=== PATIENT | female | born 1945 | race Caucasian/White ===

== ENCOUNTER 2021-08-05 09:36 | Inpatient (IN) ==
[2021-08-05] MEDS ORDERED: SODIUM CHLORIDE 0.9% 500 ML IV STA (09:51)
[2021-08-05] MEDS ORDERED: SODIUM CHLORIDE 0.9% 1000ML 1,000 ML IV STA (09:51)
[2021-08-05 10:17] LABS: Basophils # (auto) 0.03 K/uL (0-0.2); Basophils % (auto) 0.4 %; Eosinophils % (auto) 3.8 %; Hematocrit (blood only) 29.1 % (37-47); Hemoglobin 8.8 g/dL (12.0-16.0); Immature Granulocytes # (auto) 0.02 K/uL (0.00-0.02); Immature Granulocytes % (auto) 0.3 %; Lymphocytes % (auto) 15.3 %; Mean Corpuscular Hemoglobin 29.7 pg (25-34); Mean Corpuscular Hgb Conc 30.2 g/dL (32-36); Mean Corpuscular Volume 98.3 fL (80-100); Mean Platelet Volume 10.8 fL (7.4-10.4); Monocytes # (auto) 0.53 K/uL (0.11-0.59); Monocytes % (auto) 6.8 %; Neutrophils # (auto) 5.77 K/uL (1.4-6.5); Neutrophils % (auto) 73.4 %; Platelet Count 740 K/uL (130-400); RDW Coefficient of Variation 31.2 % (11.5-14.5); RDW Standard Deviation 113.8 fL (36.4-46.3); Red Blood Count 2.96 M/uL (4.2-5.4); White Blood Count 7.85 K/uL (4.8-10.8)
[2021-08-05 10:35] LABS: Alanine Aminotransferase 28 U/L (12-78); Aspartate Aminotransferase 21 U/L (15-37); BUN Creatinine Ratio 12.7 (10-20); Blood Urea Nitrogen 11 mg/dl (7-18); Calcium 8.6 mg/dl (8.5-10.1); Carbon Dioxide 25 mmol/L (21-32); Chloride 105 mmol/L (98-107); Creatinine Clr Calc Pharmacy 53.4 ml/min; Est GFR (African American) 77.2 ml/min; Est GFR (Non-African American) 66.6 ml/min; Glucose 202 mg/dl (70-99); Lipase 139 U/L (73-393); Potassium 3.9 mmol/L (3.5-5.1); Sodium 136 mmol/L (136-145)
[2021-08-05 10:40] LABS: Albumin Globulin Ratio 0.9 (0.9-2); Alkaline Phosphatase 121 U/L (45-117); Bilirubin,Total 0.6 mg/dl (0.2-1); Globulin 3.2 gm/dl (2.5-4.0); Total Protein 6.2 gm/dl (6.4-8.2); Troponin I < 0.015 ng/ml (0-0.045)
[2021-08-05 11:06] LABS: Anisocytosis Present; Ovalocytes 1+; Poikilocytosis Present; Schistocytes 1+
[2021-08-05] MEDS ORDERED: ONDANSETRON INJ 2 MG/ML 2 ML VIAL IV STA (11:36)
[2021-08-05] MEDS: HYDROmorphone INJ 0.5 MG/0.5 ML SYR IV PRN ×2 (11:44→12:10)
[2021-08-05] MEDS ORDERED: SODIUM CHLORIDE 0.9% 1000ML 1,000 ML IV ONE (12:35)
[2021-08-05] MEDS ORDERED: DAPTOmycin 375 MG in SYRINGE 0 ML IV ONE (12:39)
[2021-08-05] MEDS ORDERED: AZTREONAM 2,000 MG in DEXTROSE 5% 100 ML IV STA (12:41)
[2021-08-05] MEDS ORDERED: SODIUM CHLORIDE 0.9% 250 ML IV PRN ×3 (12:48→18:03)
--- NOTE | 2021-08-05 13:00 | CT Scan Report ---
CT abd pelvis wo con CLINICAL HISTORY: lower abd pain, hypotension TECHNIQUE: Helical axial images of the abdomen and pelvis were obtained. Automated dose lowering tech niques and/or adjustment according to patient size were utilized for this exam. This exam was perfor med without intravenous contrast. COMPARISON: None available at the time of this dictation. FINDINGS: Lower chest: Bibasilar atelectasis is seen. Liver: Unremarkable. No focal lesions are seen. Gallbladder and biliary tree: No calcified gallstones. Normal caliber wall. No intra- or extrahepatic biliary ductal dilation. Pancreas: Unremarkable, no focal lesions. Spleen: Unremarkable. Adrenals: Bilateral adrenal gland thickening is seen. Kidneys and ureters: Unremarkable. Bladder: Unremarkable. Reproductive organs: Unremarkable. Bowel: There is a large heterogeneous pelvic mass containing soft tissue and air densities, measuring approximately 76 x 116 mm. Evaluation is limited due to lack of intravenous contrast, however focal thickening is seen in the sigmoid colon. The appendix is normal. Lymph nodes Retroperitoneal: Unremarkable. Mesenteric: Unremarkable. Pelvic: Unremarkable. Peritoneum: There is extensive soft tissue density and fat stranding throughout the abdomen. Vessels: Atherosclerotic calcifications are seen. Abdominal wall: Subcutaneous emphysema is seen in the left pelvic soft tissues. Bones: Degenerative changes in the visualized spine. IMPRESSION: Large heterogeneous pelvic collection with some pockets of air adjacent to the thickened sigmoid colo n. Although evaluation is limited by noncontrast technique, this is favored to represent a hematoma w ith likely likely rectal perforation. Underlying mass cannot be entirely excluded, follow-up to resol ution is recommended. ACT 112: Positive. There are findings on this exam that require communication between the performing entity and the patient following Patient Test Result Information Act ([place] Act 112) guidelines. Electronically signed by: Nate Betancourt M.D. 08/05/2021 12:59 PM
--- NOTE | 2021-08-05 13:59 | History & Physical Report ---
Date of Service August 05, 2021 Assessment & Plan (1) Hemoperitoneum: Plan: Sonam is a 76-year-old female who presented for bone marrow biopsy at 730 this morning to assess for dysplasia 2/2 history of thrombocythemia. Following procedure patient had increased back and rectal pain with follow-up CT scan showing hemoperitoneum. Hemoperitoneum as a complication of biopsy - CT: Large heterogeneous pelvic collection with some pockets of air adjacent to the thickened sigmoid colon. Although evaluation is limited by noncontrast technique, this is favored to represent a hematoma with likely likely rectal perforation. Underlying mass cannot be entirely excluded, follow-up to resolution is recommended. Patient hypotensive, hemoglobin decreased from 13-9.2 acutely, down trended to 8.8. Patient pending 2 units transfusion, 2 additional units on hold No blood in rectal vault Surgery and vascular consulted. Recommend transfer to ICU and medical treatment with fluids, antibiotics, transfusion as needed at this time. If continues to bleed will require CT angiogram. She is allergic to contrast, premedicate with Benadryl plus methylprednisolone if pursued. Discussed with patient. Hemoglobin every 2 hours Bethea catheter pending Patient received aztreonam/daptomycin due to extensive allergies. Plus Flagyl for anaerobe coverage to cover high risk potential rectal perforation Status post 1 L NSS bolus, +500 cc additional bolus Continue NSS 125 cc/h No history of heart failure per patient Aspirin held (2) Bowel perforation: Plan: Antibiotics as above, management and surgical consult as above (3) Thrombocythemia: Plan: No acute management, patient undergoing oncologic work-up as outpatient with biopsy as noted above Aspirin held for acute bleeding (4) Peripheral neuropathy: Plan: Improved at time of assessment Follow clinically (5) Multinodular goiter: Plan: No acute management (6) Fibromyalgia: Plan: Pain control as needed, balance pain control against hypotension with above Oral meds held in the setting of hemoperitoneum and treatment as above (7) Hyperlipidemia: Plan: Pravachol held while n.p.o. (8) Depression with anxiety: Plan: BuSpar and diazepam held while n.p.o. Plan: DVT prophylaxis: SCDs, pharmacal prophylaxis contraindicated in the setting of bleeding CODE STATUS: Full code, discussed with patient Diet: N.p.o. Disposition: ICU History of Present Illness Primary Care Provider: Dionicio NShelia Pierce is a 76-year-old female who presented for bone marrow biopsy at 730 this morning to assess for dysplasia 2/2 history of thrombocythemia. Following procedure patient had increased back and rectal pain with follow-up CT scan showing hemoperitoneum. Patient reports she was otherwise in her normal state of health when she presented for a biopsy this morning. Following biopsy she had increased pain, lightheadedness, dizziness and felt globally weak. She has continued to feel frail, and lightheaded since this morning. Slightly improved in the last 2 hours, but still much worse than her normal baseline. Denies nausea/vomiting at time of assessment. Denies bloody bowel movements, endorses some "brown liquid "stool movement with none since. Endorses back pain, abdominal pain which seems to be more diffuse across her whole belly this afternoon. Extensive allergies, discussed with patient. Has multiple antibiotic allergies, initially think she was allergic to steroids but notes that this was because she was given steroids at the same time she had an allergic reaction to an antibiotic. She notes that she has had steroid medications once since without any reaction. Patient believes that she potentially may have gotten steroids as a treatment for an allergic reaction rather than being allergic to the steroids himself. She reports an allergy to IV contrast dye, severe stomachache. No throat/lip swelling voice change or rash. Medical History: Reviewed. Hx of tachycardia (not afib/flutter) tx with metoprolol, otherwise no cardiac disease. Hx of esophageal cancer in remission. Pending a gallbladder evaluation for high Alk Phos. additional medical history updated. Medications: Reviewed. Took Metoprolol and diazepam this morning. Surgical History: Reviewed. 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 Allergies: Reviewed, extensive. Social History: Former smoker, none in 5 years. No EtOH, no recreational drug use. Code Status: Full Code Allergies Allergy/AdvReac Type Severity Reaction Status Date / Time alendronate sodium Allergy Unknown unknown Verified 09/30/15 14:37 Bactrim Allergy Unknown swelling Verified 09/30/15 14:37 doxycycline Allergy Unknown anaphylaxis, Verified 09/30/15 14:37 n/v erythromycin base Allergy Unknown unknown Verified 09/30/15 14:37 glucosamine Allergy Unknown unknown Verified 09/30/15 14:37 levofloxacin Allergy Unknown n/v, Verified 09/30/15 14:37 trouble breathing pantoprazole Allergy Unknown n/v Verified 09/30/15 14:37 phenylpropanolamine Allergy Unknown unknown Verified 09/30/15 14:37 sertraline Allergy Unknown felt weird Verified 09/30/15 14:37 sulfamethoxazole [Bactrim] Allergy Unknown swelling Verified 08/05/21 11:10 trimethoprim [Bactrim] Allergy Unknown swelling Verified 08/05/21 11:10 fluconazole Allergy Unknown Unverified 08/05/21 11:10 gatifloxacin [From Tequin] Allergy Unknown Unverified 08/05/21 11:10 gentamicin Allergy Unknown Unverified 08/05/21 11:10 tobramycin Allergy Unknown Unverified 08/05/21 11:10 CENTOMYCIN Allergy Unknown unknown Uncoded 09/30/15 14:37 CHONDROITIN Allergy Unknown unknown Uncoded 09/30/15 14:37 PCN Allergy Unknown tongue Uncoded 09/30/15 14:37 swelling Home Medications Medication Instructions Recorded Confirmed Type aspirin 81 mg tablet,delayed 81 mg PO DAILY #0 09/30/15 08/05/21 History release buspirone 10 mg tablet 10 mg PO TID #0 tab 09/30/15 08/05/21 History calcium carbonate 600 mg calcium 1,200 mg PO BID #0 tab 09/30/15 08/05/21 History (1,500 mg) tablet cimetidine 400 mg tablet 400 mg PO HS #0 tab 09/30/15 08/05/21 History diazepam 2 mg tablet (Valium) 2 mg PO UD PRN #0 tab 09/30/15 08/05/21 History hydroxyurea 500 mg capsule 500 mg PO BID #0 cap 09/30/15 08/05/21 History meclizine 12.5 mg tablet 12.5 mg PO UD PRN #0 09/30/15 08/05/21 History polyethylene glycol 3350 17 17 g PO Q OTHER DAY #0 pack 09/30/15 08/05/21 History gram/dose oral powder (Miralax) pravastatin 20 mg tablet 20 mg PO DAILY #0 tab 09/30/15 08/05/21 History cyclobenzaprine 5 mg tablet 5 mg PO UD PRN 08/05/21 08/05/21 History fluocinonide 0.05 % topical cream 1 applic TOPICAL BID PRN 08/05/21 08/05/21 History metoprolol tartrate 25 mg tablet 12.5 mg PO DAILY 08/05/21 08/05/21 History Past Med/Surg History Medical History (Updated 08/05/21 @ 14:53 by Jesse Mcintyre MD) Depression with anxiety Fibromyalgia History of vertigo Hyperlipidemia Irritable bowel syndrome Laryngeal cancer Multinodular goiter Peripheral neuropathy Thrombocythemia Surgical History (Updated 08/05/21 @ 14:53 by Jesse Mcintyre MD) H/O tubal ligation Social History (Updated 08/05/21 @ 14:51 by Jesse Mcintyre MD) Smoking Status: Former smoker Tobacco Type: Cigarettes Age Quit Using Tobacco: 71; Hx Alcohol Use: No Hx Substance Use: No Feels Safe at Home: Yes Review of Systems Review of Systems: Constitutional: Endorses fatigue, malaise. Denies fever/chills Eyes: Denies double vision, vision change, eye pain ENT: Denies ear pain, sore throat, sinus pain Cardiovascular: Denies Chest pain, chest pressure, palpitations, extremity swelling Respiratory: Denies shortness of breath, cough, sputum production, difficulty breathing. Hoarse voice at baseline Gastrointestinal: Endorses diffuse abdominal pain, rectal pain, low back pain. Genitourinary: Denies pain with urination, urinary urgency, urinary frequency Musculoskeletal: Endorses abdominal and back pain as noted, denies other focal weakness/pain. Integumentary: No acute lesions/rash Neurological: Denies headache, numbness, focal weakness. Endorses peripheral neuropathy, currently improved from prior Physical Exam Physical Exam: General: A&Ox3. NAD. Cooperative. Appears ill, frail. HEENT: Atraumatic, normocephalic. Visual acuity grossly intact, hearing grossly intact. Pupils mildly constricted, but reactive to light. Pulm: CTAB A&P. -wheezes, -rales, -rhonchi. Symmetrical chest rise. No increase work of breathing. No respiratory distress. Cardiac: RRR, -mrg. Radial pulses intact and symmetrical. Abdominal: Softly distended, diffusely tender without guarding/rigidity. No rebound. Back: Surgical dressing above right coccyx in place, underneath no active bleeding/hematoma. Extremities: Warm, dry. Clarifier strength, ankle dorsiflexion/plantar flexion 5/5. Sensation to soft touch and temperature intact in hands and feet. Radial pulses and PT pulses intact and symmetrical. Cap refill approximately 2 seconds. Results & Data Results & Data ([facility]) Vital Signs (Past 12 Hours) Vital Signs Temp Pulse Pulse Resp BP BP Pulse Ox 08/05/21 13:00 88 20 75/59 L 98 08/05/21 11:51 90 20 112/68 100 08/05/21 09:57 36.7 C 78 20 90/57 L 96 08/05/21 09:51 85 20 96 08/05/21 09:47 85 16 70/48 L 96 PG Care Time/CCT Total # of Minutes Spent Total Time Spent with Patient: Total time spent is greater than 50% in coordination of care (as documented) at patient's floor/unit and/or counseling patient: Coding Level of Care Code 27109 Initial Inpt Care Lvl 3 Diagnoses Hemoperitoneum K66.1 Bowel perforation K63.1 Thrombocythemia D75.839 Peripheral neuropathy G62.9 Multinodular goiter E04.2 Fibromyalgia M79.7 Hyperlipidemia E78.5 Depression with anxiety F41.8
--- NOTE | 2021-08-05 14:17 | Surgery Consultation ---
Date of Consultation August 05, 2021 Assessment & Plan (1) Hemoperitoneum: I reviewed the CAT scan with the radiologist refiner operator who stated that he did not personally do the procedure but talked to the person that that and felt that and not amount of bleeding when biopsy needle was removed Reviewed the CAT scan image the patient does have some blood around the liver which would make an intraperitoneal does have what appears to be some air either in the rectal wall or just outside the rectum and a large pelvic hematoma ER physician performed a rectal exam there was no blood in the rectum Given the likely trajectory of the bone marrow needle is likely the patient may have had some injury to the venous plexus around the sacral area with possibly the needle going into the rectum itself but since the patient has blood intraperitoneally I suspect that the trajectory of the needle involved by dilating the peritoneum (if this is the case the last resort would be to try to explore these veins could be treacherous to control) At this point recommended the patient be transferred to the ICU transfused monitor her closely If she continues to bleed and we will obtain a CT angiogram she is allergic to the contrast she will need to be premedicated with steroids She will be given 2 units of blood at this time get serial hemoglobin insert Bethea catheter The case was discussed with the 3d designer the ER physician and the hospitalist with the patient and significant other History of Present Illness Reason for Consultation: Hypertension bleeding post procedure History of Present Illness 76-year-old female who is being worked up for anemia rule out myeloproliferative disease in approximately 730 this morning underwent a bone marrow biopsy by hematology service later in the morning started experience abdominal pain was brought into the emergency room and a CAT scan revealed what is believed intra-abdominal blood around the liver and in the pelvis with possible some air in the rectum she was hypotensive responded to fluids her hemoglobin that was drawn 11:00 was 8.8 had a hemoglobin of 9.2 that was being used to work-up possible etiology She has responded to fluids pressure in the 75 systolic to 110 systolic her heart rate been in high 80s low 90s Allergies Allergy/AdvReac Type Severity Reaction Status Date / Time alendronate sodium Allergy Unknown unknown Verified 09/30/15 14:37 Bactrim Allergy Unknown swelling Verified 09/30/15 14:37 doxycycline Allergy Unknown anaphylaxis, Verified 09/30/15 14:37 n/v erythromycin base Allergy Unknown unknown Verified 09/30/15 14:37 glucosamine Allergy Unknown unknown Verified 09/30/15 14:37 levofloxacin Allergy Unknown n/v, Verified 09/30/15 14:37 trouble breathing pantoprazole Allergy Unknown n/v Verified 09/30/15 14:37 phenylpropanolamine Allergy Unknown unknown Verified 09/30/15 14:37 sertraline Allergy Unknown felt weird Verified 09/30/15 14:37 sulfamethoxazole [Bactrim] Allergy Unknown swelling Verified 08/05/21 11:10 trimethoprim [Bactrim] Allergy Unknown swelling Verified 08/05/21 11:10 fluconazole Allergy Unknown Unverified 08/05/21 11:10 gatifloxacin [From Tequin] Allergy Unknown Unverified 08/05/21 11:10 gentamicin Allergy Unknown Unverified 08/05/21 11:10 tobramycin Allergy Unknown Unverified 08/05/21 11:10 CENTOMYCIN Allergy Unknown unknown Uncoded 09/30/15 14:37 CHONDROITIN Allergy Unknown unknown Uncoded 09/30/15 14:37 PCN Allergy Unknown tongue Uncoded 09/30/15 14:37 swelling Home Medications Medication Instructions Recorded Confirmed Type aspirin 81 mg tablet,delayed 81 mg PO DAILY #0 09/30/15 08/05/21 History release buspirone 10 mg tablet 10 mg PO TID #0 tab 09/30/15 08/05/21 History calcium carbonate 600 mg calcium 1,200 mg PO BID #0 tab 09/30/15 08/05/21 History (1,500 mg) tablet cimetidine 400 mg tablet 400 mg PO HS #0 tab 09/30/15 08/05/21 History diazepam 2 mg tablet (Valium) 2 mg PO UD PRN #0 tab 09/30/15 08/05/21 History hydroxyurea 500 mg capsule 500 mg PO BID #0 cap 09/30/15 08/05/21 History meclizine 12.5 mg tablet 12.5 mg PO UD PRN #0 09/30/15 08/05/21 History polyethylene glycol 3350 17 17 g PO Q OTHER DAY #0 pack 09/30/15 08/05/21 History gram/dose oral powder (Miralax) pravastatin 20 mg tablet 20 mg PO DAILY #0 tab 09/30/15 08/05/21 History cyclobenzaprine 5 mg tablet 5 mg PO UD PRN 08/05/21 08/05/21 History fluocinonide 0.05 % topical cream 1 applic TOPICAL BID PRN 08/05/21 08/05/21 History metoprolol tartrate 25 mg tablet 12.5 mg PO DAILY 08/05/21 08/05/21 History Patient History Social History Smoking Status: Never smoker Feels Safe at Home: Yes Physical Exam Physical Exam: On examination at a proximal 1310 the patient was pale laying on right side complaining of abdominal pain Her blood pressure was 110 systolic heart rate 83 The abdomen softly distended especially in the suprapubic area femoral pulses were present bilaterally although 2 out of 4 The entry site for the bone marrow was just to the right of the midline in the sacral area above the coccyx level there was no active bleeding from that area Results & Data ([facility]) Vital Signs (Past 12 Hours) Vital Signs Temp Pulse Pulse Resp BP BP Pulse Ox 08/05/21 13:00 88 20 75/59 L 98 08/05/21 11:51 90 20 112/68 100 08/05/21 09:57 36.7 C 78 20 90/57 L 96 08/05/21 09:51 85 20 96 08/05/21 09:47 85 16 70/48 L 96 PG Care Time/CCT Total # of Minutes Spent Total Time Spent with Patient: Total time spent is greater than 50% in coordination of care (as documented) at patient's floor/unit and/or counseling patient: Reviewing the x-rays all the appropriate plans with the consultants total time 1 hour Coding Level of Care Code 86001 Inpt Consult Level 5 Diagnoses Hemoperitoneum K66.1
[2021-08-05] MEDS ORDERED: ICU PROTOCOL FOR HYPERGLYCEMIA PRN (15:34)
[2021-08-05 16:16] LABS: INR 1.2 (0.9-1.1); Partial Thromboplastin Ratio 0.8; Prothrombin Time 11.7 Seconds (9.0-12.0)
[2021-08-05] MEDS: metroNIDAZOLE 500 MG/100 ML BAG IV SCH (16:26)
[2021-08-05] MEDS: fentaNYL citrate 100 MCG/2 ML VIAL IV PRN ×6 (16:26→23:20)
[2021-08-05 16:28] LABS: Hematocrit (blood only) 21.9 % (37-47); Hemoglobin 6.6 g/dL (12.0-16.0)
--- NOTE | 2021-08-05 17:27 | Critical Care Consultation ---
Date of Consultation August 05, 2021 Assessment & Plan (1) Hemoperitoneum: (2) Hypotension: (3) Thrombocythemia: Patient receiving blood at this time. We will recheck his CBC. Hypotension has resolved. No surgical intervention required at this time per general surgery. Personally discussed with the surgeon. If further bleeding seen, will need to order a CTA to evaluate for arterial bleeding. There is also concern for possible pneumoperitoneum. No significant coagulopathy seen. Will hold anticoagulation. Pain control per primary team. Patient is currently on empiric Flagyl. She also received a one-time dose of aztreonam and daptomycin in the ER. We will need to consider repeat CT abdomen to evaluate pneumoperitoneum and hemoperitoneum. ICU team will continue to monitor along with you. Thank you for the consult. History of Present Illness Reason for Consultation: Hemorrhagic anemia Attending Physician: Jesse Mcintyre MD History of Present Illness 76-year-old female who has a history of thrombocytosis underwent a bone marrow biopsy this morning. Following the biopsy she developed pain and dizziness. She came into the ER due to weakness and pain. She was found to have anemia. CT abdomen pelvis was completed which demonstrated a large heterogeneous pelvic collection with some pockets of air adjacent to the thickened sigmoid colon. A hematoma was favored and a likely rectal perforation. General surgery was consulted who is currently recommending conservative management and blood transfusion. Patient is not currently on any anticoagulation or antiplatelet therapy. 1 unit of packed RBCs is currently transfusing. Patient received 1.5 L of fluid in the emergency department. He is currently having some mild abdominal pain. Denies any dizziness or chest pain at present. Hemoglobin is currently 6.6. Blood pressure is currently 123/64. Heart rate 100. Allergies Allergy/AdvReac Type Severity Reaction Status Date / Time alendronate sodium Allergy Unknown unknown Verified 09/30/15 14:37 Bactrim Allergy Unknown swelling Verified 09/30/15 14:37 doxycycline Allergy Unknown anaphylaxis, Verified 09/30/15 14:37 n/v erythromycin base Allergy Unknown unknown Verified 09/30/15 14:37 glucosamine Allergy Unknown unknown Verified 09/30/15 14:37 levofloxacin Allergy Unknown n/v, Verified 09/30/15 14:37 trouble breathing pantoprazole Allergy Unknown n/v Verified 09/30/15 14:37 phenylpropanolamine Allergy Unknown unknown Verified 09/30/15 14:37 sertraline Allergy Unknown felt weird Verified 09/30/15 14:37 sulfamethoxazole [Bactrim] Allergy Unknown swelling Verified 08/05/21 11:10 trimethoprim [Bactrim] Allergy Unknown swelling Verified 08/05/21 11:10 fluconazole Allergy Unknown Unverified 08/05/21 11:10 gatifloxacin [From Tequin] Allergy Unknown Unverified 08/05/21 11:10 gentamicin Allergy Unknown Unverified 08/05/21 11:10 tobramycin Allergy Unknown Unverified 08/05/21 11:10 CENTOMYCIN Allergy Unknown unknown Uncoded 09/30/15 14:37 CHONDROITIN Allergy Unknown unknown Uncoded 09/30/15 14:37 PCN Allergy Unknown tongue Uncoded 09/30/15 14:37 swelling Home Medications Medication Instructions Recorded Confirmed Type aspirin 81 mg tablet,delayed 81 mg PO DAILY #0 09/30/15 08/05/21 History release buspirone 10 mg tablet 10 mg PO TID #0 tab 09/30/15 08/05/21 History calcium carbonate 600 mg calcium 1,200 mg PO BID #0 tab 09/30/15 08/05/21 History (1,500 mg) tablet cimetidine 400 mg tablet 400 mg PO HS #0 tab 09/30/15 08/05/21 History diazepam 2 mg tablet (Valium) 2 mg PO UD PRN #0 tab 09/30/15 08/05/21 History hydroxyurea 500 mg capsule 500 mg PO BID #0 cap 09/30/15 08/05/21 History meclizine 12.5 mg tablet 12.5 mg PO UD PRN #0 09/30/15 08/05/21 History polyethylene glycol 3350 17 17 g PO Q OTHER DAY #0 pack 09/30/15 08/05/21 History gram/dose oral powder (Miralax) pravastatin 20 mg tablet 20 mg PO DAILY #0 tab 09/30/15 08/05/21 History cyclobenzaprine 5 mg tablet 5 mg PO UD PRN 08/05/21 08/05/21 History fluocinonide 0.05 % topical cream 1 applic TOPICAL BID PRN 08/05/21 08/05/21 History metoprolol tartrate 25 mg tablet 12.5 mg PO DAILY 08/05/21 08/05/21 History Patient History Medical History (Updated 08/05/21 @ 18:40 by Chaparro España MD) Depression with anxiety Fibromyalgia History of vertigo Hyperlipidemia Hypotension Irritable bowel syndrome Laryngeal cancer Multinodular goiter Peripheral neuropathy Thrombocythemia Surgical History (Updated 08/05/21 @ 14:53 by Jesse Mcintyre MD) H/O tubal ligation Social History (Updated 08/05/21 @ 14:51 by Jesse Mcintyre MD) Smoking Status: Unknown if ever smoked Tobacco Type: Cigarettes Age Quit Using Tobacco: 71; Hx Alcohol Use: No Hx Substance Use: No Preferred Language: [place]uran Communication Ability: Effective City [employer] Required: No Beliefs That Will Affect Care: None Current Living Situation: Spouse Other Information That Helps Us Care for You: No Feels Safe at Home: Yes Safety Concerns: Feels Safe At This Time Assistive Devices: Denture - Upper Review of Systems Review of Systems: All systems reviewed & are unremarkable except as noted in HPI & below Physical Exam Physical Exam: Constitutional: Patient appears to be of their stated age. Patient is in no apparent distress. Patient is well-developed. Eyes: Pupils are equal round and reactive to light. Conjunctivae are normal. Anicteric sclera. Ears, nose, mouth and throat: Mallampati class . Normal posterior oropharynx. Uvula is midline. Neck: Trachea is midline. Visual inspection is normal. Respiratory: Clear to auscultation bilaterally. No use of accessory muscles. Cardiovascular: Regular rate and rhythm. No murmurs. No edema. Gastrointestinal: Mild tenderness palpation in the lower abdomen. Normal bowel sounds. Musculoskeletal: No cyanosis. Patient is able to move all extremities. Skin: No rashes, warm dry and intact. Neurologic: No obvious focal neurological deficits seen. Psychiatric: Alert and oriented x3 with a euthymic affect. Results & Data Results & Data ([facility]) Vital Signs (Past 12 Hours) Vital Signs Temp Pulse Pulse Resp BP BP Pulse Ox 08/05/21 17:10 97.7 F 94 H 16 102/68 95 08/05/21 16:36 97.9 F 94 H 16 106/68 95 08/05/21 16:21 97.7 F 95 H 16 97/46 L 96 08/05/21 16:06 97.7 F 90 16 95/68 L 95 08/05/21 15:34 94 H 08/05/21 15:00 88 18 85/39 L 95 08/05/21 13:00 88 20 75/59 L 98 08/05/21 11:51 90 20 112/68 100 08/05/21 09:57 98.1 F 78 20 90/57 L 96 08/05/21 09:51 85 20 96 08/05/21 09:47 85 16 70/48 L 96 vital signs, labs and imaging personally reviewed Coding Level of Care Code 78695 Inpt Consult Level 4 Diagnoses Hypotension I95.9 Hemoperitoneum K66.1 Thrombocythemia D75.839
--- NOTE | 2021-08-05 18:40 | Emergency Department Note ---
Impression & Plan Acute hemorrhage, Perforation of rectum, Anemia, Acute hypotension ED Provider Note INFORMANT: Patient and ED PROVIDER(S): Chaparro España MD CHIEF COMPLAINT: Rectal lower abdominal pain PLAN: Disposition: Admitted to ICU Condition: Critical Outpatient prescription management: none Referral: None MEDICAL DECISION MAKING: Patient presented emergency room because of lower abdominal pain and rectal pain after bladder biopsy. Rectal examination was concerning for tenderness but no gross blood noted. She had a very tender abdomen. Her blood pressure was low. She responded well to IV fluids. She was given a dose of IV Dilaudid and Zofran. She did feel somewhat better with this. The patient had additional episodes of hypotension that responded to IV fluids. Due to the hypotension, elevated lactate an abdominal/rectal pain patient was empirically given aztreonam and daptomycin. Patient underwent emergent CT scan and this revealed findings concerning for rectal perforation and pelvic hemorrhage. I did discuss this with radiology. The patient was informed. Patient was consented for packed red cell transfusion. Emergent consultation was placed with general surgery, Dr. Christiano Cabrera. He evaluated the patient in the ER. I also discussed the case with Dr. Fritz of hematology oncology. He evaluated the patient in the ER as well. 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 I did order the patient for 2 units of packed red blood cells given her recurrent hypotension. Surgery recommended conservative management with transfusion and monitoring. The concern was this could be bleeding from sacral plexus vessels and they would be very difficult to control open thomas. did discuss with vascular. He also consulted with the ICU and the patient will be admitted there. I discussed the case with for admission. The patient's blood pressure was marginal and Dilaudid was discontinued. She was given IV fentanyl for pain control. ICU bed was ready and blood was ready at the same time. The patient was transferred to the ICU for further resuscitation. Triage Nursing notes reviewed and agree them. Vital Signs: reviewed and remarkable for hypotension Differential diagnosis: Sepsis, UTI, GI bleed, perforated viscus, diverticulitis, metabolic, electrolyte abnormalities, as well as other pathologies. Diagnostics interpreted by me: ECG: none Cardiac Monitoring: Cardiac monitoring ordered by me: The patient was placed on continuous cardiac monitoring and observed. It revealed a normal sinus rhythm at 94 beats per minute without ectopy or evidence of dysrhythmia. Imaging studies: CT scan of the abdomen pelvis is concerning for rectal perforation and pelvic hemorrhage. Discussed with radiologist. I refer you to the EMR for further details. HPI: The patient is a 76 year old female who presents to the Emergency Room with complaints of lower abdominal and rectal pain. This started shortly after a bone marrow biopsy that was done at 730 this morning and is worsening. The patient also notes the following associated symptoms, nausea, lightheadedness. The patient has found no relieving factors. Current pain is rated as 8/10. Pain is worse with movement. Patient denies any recent significant constipation issues. She is been having relatively normal bowel movements although she does use MiraLAX. Pt denies LOC, headache, fevers, chills, diaphoresis, visual changes, neck pain, chest pain, breathing difficulties, vomiting, back pain, melena, hematochezia, urinary symptoms, numbness, weakness, lymphadenopathy, rash, or other complaints. ROS: See above HPI for pertinent positives & negatives. A total of 10 systems reviewed and were otherwise negative. PAST MEDICAL HISTORY:See Below , MDS PAST SURGICAL HISTORY:See Below, FAMILY HISTORY:See Below SOCIAL HISTORY:See Below, HOME MEDICATIONS:See Below ALLERGIES:See Below VITALS:See Below PHYSICAL EXAMINATION: GENERAL: Awake, alert, uncomfortable-appearing, in no distress HENT: Normocephalic, atraumatic. Oropharynx unremarkable except for dry mucous membranes. EYES: Mildly pale conjunctiva. Sclera non-icteric. NECK: Inspection normal. Non-tender. Supple. No nuchal rigidity. FROM. No masses. RESPIRATORY: Clear to auscultation. No wheezes. No rales. Normal respiratory effort. CARDIAC: Normal rate. Normal rhythm. No murmurs. No rubs. Extremities warm and well perfused. Pulses equal. No JVD. GI: Soft, non-distended. Significant lower tenderness to palpation. Mild rebound and guarding. No masses. RECTAL: Revealed no gross blood. Patient had exquisite tenderness on internal palpation. No impaction. MUSCULOSKELETAL: Atraumatic. Chest examination reveals no tenderness. The back is symmetrical on inspection without obvious abnormality. There is no CVA tenderness to palpation. No joint edema. LOWER EXTREMITIES: Calves are equal size bilaterally and non-tender. No edema. No discoloration. NEURO: Normal sensorium. No sensory or motor deficits noted. SKIN: No rash or jaundice noted. CRITICAL CARE: I have personally spent greater than 50 minutes of critical care time in the d irect management of this patient. This includes bedside care, interpretation of diagnostic studies, and testing, discussion with consultants, patient, and family members, and other required patient management activities. These minutes are in excess of all separately billable procedures. Chaparro España MD Past Med/Surg History Medical History (Updated 08/05/21 @ 18:40 by Chaparro España MD) Depression with anxiety Fibromyalgia History of vertigo Hyperlipidemia Hypotension Irritable bowel syndrome Laryngeal cancer Multinodular goiter Peripheral neuropathy Thrombocythemia Surgical History (Updated 08/05/21 @ 14:53 by Jesse Mcintyre MD) H/O tubal ligation Social History (Updated 08/05/21 @ 14:51 by Jesse Mcintyre MD) Smoking Status: Unknown if ever smoked Tobacco Type: Cigarettes Age Quit Using Tobacco: 71; Hx Alcohol Use: No Hx Substance Use: No Preferred Language: Swedish Communication Ability: Effective Counseling Department Chair Required: No Beliefs That Will Affect Care: None Current Living Situation: Spouse Other Information That Helps Us Care for You: No Feels Safe at Home: Yes Safety Concerns: Feels Safe At This Time Assistive Devices: Denture - Upper Allergies Allergies Allergy/AdvReac Type Severity Reaction Status Date / Time alendronate sodium Allergy Unknown unknown Verified 09/30/15 14:37 Bactrim Allergy Unknown swelling Verified 09/30/15 14:37 doxycycline Allergy Unknown anaphylaxis, Verified 09/30/15 14:37 n/v erythromycin base Allergy Unknown unknown Verified 09/30/15 14:37 glucosamine Allergy Unknown unknown Verified 09/30/15 14:37 levofloxacin Allergy Unknown n/v, Verified 09/30/15 14:37 trouble breathing pantoprazole Allergy Unknown n/v Verified 09/30/15 14:37 phenylpropanolamine Allergy Unknown unknown Verified 09/30/15 14:37 sertraline Allergy Unknown felt weird Verified 09/30/15 14:37 sulfamethoxazole [Bactrim] Allergy Unknown swelling Verified 08/05/21 11:10 trimethoprim [Bactrim] Allergy Unknown swelling Verified 08/05/21 11:10 fluconazole Allergy Unknown Unverified 08/05/21 11:10 gatifloxacin [From Tequin] Allergy Unknown Unverified 08/05/21 11:10 gentamicin Allergy Unknown Unverified 08/05/21 11:10 tobramycin Allergy Unknown Unverified 08/05/21 11:10 CENTOMYCIN Allergy Unknown unknown Uncoded 09/30/15 14:37 CHONDROITIN Allergy Unknown unknown Uncoded 09/30/15 14:37 PCN Allergy Unknown tongue Uncoded 09/30/15 14:37 swelling Home Meds Home Medications Medication Instructions Recorded Confirmed aspirin 81 mg tablet,delayed 81 mg PO DAILY #0 09/30/15 08/05/21 release buspirone 10 mg tablet 10 mg PO TID #0 tab 09/30/15 08/05/21 calcium carbonate 600 mg calcium 1,200 mg PO BID #0 tab 09/30/15 08/05/21 (1,500 mg) tablet cimetidine 400 mg tablet 400 mg PO HS #0 tab 09/30/15 08/05/21 diazepam 2 mg tablet (Valium) 2 mg PO UD PRN #0 tab 09/30/15 08/05/21 hydroxyurea 500 mg capsule 500 mg PO BID #0 cap 09/30/15 08/05/21 meclizine 12.5 mg tablet 12.5 mg PO UD PRN #0 09/30/15 08/05/21 polyethylene glycol 3350 17 17 g PO Q OTHER DAY #0 pack 09/30/15 08/05/21 gram/dose oral powder (Miralax) pravastatin 20 mg tablet 20 mg PO DAILY #0 tab 09/30/15 08/05/21 cyclobenzaprine 5 mg tablet 5 mg PO UD PRN 08/05/21 08/05/21 fluocinonide 0.05 % topical cream 1 applic TOPICAL BID PRN 08/05/21 08/05/21 metoprolol tartrate 25 mg tablet 12.5 mg PO DAILY 08/05/21 08/05/21 Results & Data (ED) Vital Signs Vital Signs - 24 hr 08/05/21 09:47 08/05/21 09:51 08/05/21 09:57 Temperature 36.7 C Temperature Source Oral Pulse Rate 85 85 Pulse Rate [Apical] 78 Pulse Rate from SpO2 Sensor Pulse Rhythm Regular Pulse Rhythm [Apical] Regular Respiratory Rate 16 20 20 Respiratory Effort / Characteristics Non-Labored Respiratory Depth Normal Respiratory Pattern Regular Blood Pressure 70/48 L Blood Pressure [Right Arm] 90/57 L Blood Pressure Mean 55 Blood Pressure Mean [Right Arm] 68 Pulse Oximetry 96 96 96 Oxygen Delivery Method Room Air Room Air Sepsis Recent Fever Within 48 Hours No Sepsis New/Unexplained Change in Mental Status No Sepsis Action Taken by Nursing No Action Required 08/05/21 10:05 08/05/21 11:00 08/05/21 11:51 Temperature Temperature Source Pulse Rate 78 86 Pulse Rate [Apical] 90 Pulse Rate from SpO2 Sensor 86 Pulse Rhythm Pulse Rhythm [Apical] Respiratory Rate 27 H 24 20 Respiratory Effort / Characteristics Respiratory Depth Respiratory Pattern Blood Pressure Blood Pressure [Right Arm] 112/68 Blood Pressure Mean Blood Pressure Mean [Right Arm] 82 Pulse Oximetry 99 100 Oxygen Delivery Method Room Air Sepsis Recent Fever Within 48 Hours Sepsis New/Unexplained Change in Mental Status Sepsis Action Taken by Nursing 08/05/21 12:20 08/05/21 13:00 08/05/21 14:00 Temperature Temperature Source Pulse Rate 78 84 85 Pulse Rate [Apical] 88 Pulse Rate from SpO2 Sensor 79 85 85 Pulse Rhythm Pulse Rhythm [Apical] Respiratory Rate 17 24 25 H Respiratory Effort / Characteristics Respiratory Depth Respiratory Pattern Blood Pressure 71/38 L Blood Pressure [Right Arm] 75/59 L Blood Pressure Mean 49 Blood Pressure Mean [Right Arm] 64 Pulse Oximetry 96 96 95 Oxygen Delivery Method Sepsis Recent Fever Within 48 Hours Sepsis New/Unexplained Change in Mental Status Sepsis Action Taken by Nursing Laboratory Data Result diagrams: 08/05/21 15:55 08/05/21 10:08 Lab Results 08/05/21 08/05/21 08/05/21 Range/Units 10:08 10:08 10:08 WBC 7.85 (4.8-10.8) K/uL RBC 2.96 L (4.2-5.4) M/uL Hgb 8.8 L (12.0-16.0) g/dL Hct 29.1 L (37-47) % MCV 98.3 (80-100) fL MCH 29.7 (25-34) pg MCHC 30.2 L (32-36) g/dL RDW Std Deviation 113.8 H (36.4-46.3) fL RDW Coeff of Kyree 31.2 H (11.5-14.5) % Plt Count 740 H (130-400) K/uL MPV 10.8 H (7.4-10.4) fL Immature Gran % (Auto) 0.3 % Neut % (Auto) 73.4 % Lymph % (Auto) 15.3 % Wharton % (Auto) 6.8 % Eos % (Auto) 3.8 % Baso % (Auto) 0.4 % Neut # (Auto) 5.77 (1.4-6.5) K/uL Lymph # (Auto) 1.20 (1.2-3.4) K/uL Wharton # (Auto) 0.53 (0.11-0.59) K/uL Eos # (Auto) 0.30 (0-0.5) K/uL Baso # (Auto) 0.03 (0-0.2) K/uL Immature Gran # (Auto) 0.02 (0.00-0.02) K/uL Poikilocytosis Present Anisocytosis Present Ovalocytes 1+ Schistocytes 1+ Sodium 136 (136-145) mmol/L Potassium 3.9 (3.5-5.1) mmol/L Chloride 105 (98-107) mmol/L Carbon Dioxide 25 (21-32) mmol/L Anion Gap 6.0 (3-11) BUN 11 (7-18) mg/dl Creatinine 0.84 (0.6-1.2) mg/dl Est Cr Clr Drug Dosing 53.4 ml/min Est GFR ( Amer) 77.2 ml/min Est GFR (Non-Af Amer) 66.6 ml/min BUN/Creatinine Ratio 12.7 (10-20) Glucose 202 H (70-99) mg/dl Lactate 2.1 H* (0.4-2.0) mmol/L Calcium 8.6 (8.5-10.1) mg/dl Total Bilirubin 0.6 (0.2-1) mg/dl AST 21 (15-37) U/L ALT 28 (12-78) U/L Alkaline Phosphatase 121 H (45-117) U/L Troponin I < 0.015 (0-0.045) ng/ml Total Protein 6.2 L (6.4-8.2) gm/dl Albumin 3.0 L (3.4-5.0) gm/dl Globulin 3.2 (2.5-4.0) gm/dl Albumin/Globulin Ratio 0.9 (0.9-2) Lipase 139 (73-393) U/L COVID-19 Eval Order SARS-CoV-2 (PCR) (Negative) Blood Type Blood Type Recheck Antibody Screen Crossmatch 08/05/21 08/05/21 08/05/21 Range/Units 13:00 13:00 13:02 WBC (4.8-10.8) K/uL RBC (4.2-5.4) M/uL Hgb (12.0-16.0) g/dL Hct (37-47) % MCV (80-100) fL MCH (25-34) pg MCHC (32-36) g/dL RDW Std Deviation (36.4-46.3) fL RDW Coeff of Kyree (11.5-14.5) % Plt Count (130-400) K/uL MPV (7.4-10.4) fL Immature Gran % (Auto) % Neut % (Auto) % Lymph % (Auto) % Wharton % (Auto) % Eos % (Auto) % Baso % (Auto) % Neut # (Auto) (1.4-6.5) K/uL Lymph # (Auto) (1.2-3.4) K/uL Wharton # (Auto) (0.11-0.59) K/uL Eos # (Auto) (0-0.5) K/uL Baso # (Auto) (0-0.2) K/uL Immature Gran # (Auto) (0.00-0.02) K/uL Poikilocytosis Anisocytosis Ovalocytes Schistocytes Sodium (136-145) mmol/L Potassium (3.5-5.1) mmol/L Chloride (98-107) mmol/L Carbon Dioxide (21-32) mmol/L Anion Gap (3-11) BUN (7-18) mg/dl Creatinine (0.6-1.2) mg/dl Est Cr Clr Drug Dosing ml/min Est GFR ( Amer) ml/min Est GFR (Non-Af Amer) ml/min BUN/Creatinine Ratio (10-20) Glucose (70-99) mg/dl Lactate (0.4-2.0) mmol/L Calcium (8.5-10.1) mg/dl Total Bilirubin (0.2-1) mg/dl AST (15-37) U/L ALT (12-78) U/L Alkaline Phosphatase (45-117) U/L Troponin I (0-0.045) ng/ml Total Protein (6.4-8.2) gm/dl Albumin (3.4-5.0) gm/dl Globulin (2.5-4.0) gm/dl Albumin/Globulin Ratio (0.9-2) Lipase (73-393) U/L COVID-19 Eval Order Covid19 at [facility] SARS-CoV-2 (PCR) NEGATIVE (Negative) Blood Type B Positive Blood Type Recheck Antibody Screen NEGATIVE Crossmatch See Detail 08/05/21 Range/Units 13:13 WBC (4.8-10.8) K/uL RBC (4.2-5.4) M/uL Hgb (12.0-16.0) g/dL Hct (37-47) % MCV (80-100) fL MCH (25-34) pg MCHC (32-36) g/dL RDW Std Deviation (36.4-46.3) fL RDW Coeff of Kyree (11.5-14.5) % Plt Count (130-400) K/uL MPV (7.4-10.4) fL Immature Gran % (Auto) % Neut % (Auto) % Lymph % (Auto) % Wharton % (Auto) % Eos % (Auto) % Baso % (Auto) % Neut # (Auto) (1.4-6.5) K/uL Lymph # (Auto) (1.2-3.4) K/uL Wharton # (Auto) (0.11-0.59) K/uL Eos # (Auto) (0-0.5) K/uL Baso # (Auto) (0-0.2) K/uL Immature Gran # (Auto) (0.00-0.02) K/uL Poikilocytosis Anisocytosis Ovalocytes Schistocytes Sodium (136-145) mmol/L Potassium (3.5-5.1) mmol/L Chloride (98-107) mmol/L Carbon Dioxide (21-32) mmol/L Anion Gap (3-11) BUN (7-18) mg/dl Creatinine (0.6-1.2) mg/dl Est Cr Clr Drug Dosing ml/min Est GFR ( Amer) ml/min Est GFR (Non-Af Amer) ml/min BUN/Creatinine Ratio (10-20) Glucose (70-99) mg/dl Lactate (0.4-2.0) mmol/L Calcium (8.5-10.1) mg/dl Total Bilirubin (0.2-1) mg/dl AST (15-37) U/L ALT (12-78) U/L Alkaline Phosphatase (45-117) U/L Troponin I (0-0.045) ng/ml Total Protein (6.4-8.2) gm/dl Albumin (3.4-5.0) gm/dl Globulin (2.5-4.0) gm/dl Albumin/Globulin Ratio (0.9-2) Lipase (73-393) U/L COVID-19 Eval Order SARS-CoV-2 (PCR) (Negative) Blood Type Blood Type Recheck B Positive Antibody Screen Crossmatch Administered Medications Fentanyl Citrate (Fentanyl Citrate 100 Mcg/2 Ml Vial) 50 mcg IV Q15M PRN PRN Reason: Pain Stop: 08/19/21 15:00 Last Admin: 08/05/21 17:55 Dose: 50 mcg Documented by: [id number] Admin: 08/05/21 16:26 Dose: 50 mcg Documented by: [id number] Metronidazole (Flagyl) 500 mg in 100 mls @ 100 mls/hr IV Q8H ANA Stop: 08/15/21 15:59 Last Infusion: 08/05/21 17:28 Dose: 0 mls/hr Documented by: [id number] Admin: 08/05/21 16:26 Dose: 100 mls/hr Documented by: [id number] Discontinued Medications Hydromorphone HCl (Hydromorphone Inj 0.5 Mg/0.5 Ml Syr) 0.5 mg IV Q15M PRN PRN Reason: Pain Stop: 08/19/21 11:35 Last Admin: 08/05/21 12:10 Dose: 0.5 mg Documented by: [id number] Admin: 08/05/21 11:44 Dose: 0.5 mg Documented by: [id number] Sodium Chloride (Nss) 500 mls @ 999 mls/hr IV .Q31M STA Stop: 08/05/21 10:21 Last Infusion: 08/05/21 10:39 Dose: 0 mls/hr Documented by: [id number] Admin: 08/05/21 10:08 Dose: 999 mls/hr Documented by: [id number] Sodium Chloride (Nss 1000ml) 1,000 mls @ 125 mls/hr IV .Q8H STA Stop: 08/05/21 17:50 Last Admin: 08/05/21 13:37 Dose: 125 mls/hr Documented by: [id number] Sodium Chloride (Nss 1000ml) 1,000 mls @ 999 mls/hr IV .Q1H1M ONE Stop: 08/05/21 13:35 Last Infusion: 08/05/21 13:46 Dose: 0 mls/hr Documented by: [id number] Admin: 08/05/21 12:45 Dose: 999 mls/hr Documented by: [id number] Daptomycin 375 mg/ Syringe 7.5 mls @ 3.75 mls/min IV NOW ONE; Protocol Stop: 08/05/21 12:40 Last Admin: 08/05/21 13:37 Dose: 3.75 mls/min Documented by: [id number] Aztreonam 2,000 mg/ Dextrose 110 mls @ 100 mls/hr IV NOW STA; Protocol Stop: 08/05/21 13:46 Last Infusion: 08/05/21 15:05 Dose: 0 mls/hr Documented by: [id number] Admin: 08/05/21 13:59 Dose: 100 mls/hr Documented by: [id number] Ondansetron HCl (Ondansetron Inj 2 Mg/Ml 2 Ml Vial) 4 mg IV NOW STA Stop: 08/05/21 11:37 Last Admin: 08/05/21 11:45 Dose: 4 mg Documented by: [id number] Imaging Data Radiologist's Impression: Abdomen/Pelvis CT 08/05/21 11:24 CT abd pelvis wo con CLINICAL HISTORY: lower abd pain, hypotension TECHNIQUE: Helical axial images of the abdomen and pelvis were obtained. A utomated dose lowering techniques and/or adjustment according to patient size were utilized for this exam. This exam was performed without intravenous contrast. COMPARISON: None available at the time of this dictation. FINDINGS: Lower chest: Bibasilar atelectasis is seen. Liver: Unremarkable. No focal lesions are seen. Gallbladder and biliary tree: No calcified gallstones. Normal caliber wall. No intra- or extrahepatic biliary ductal dilation. Pancreas: Unremarkable, no focal lesions. Spleen: Unremarkable. Adrenals: Bilateral adrenal gland thickening is seen. Kidneys and ureters: Unremarkable. Bladder: Unremarkable. Reproductive organs: Unremarkable. Bowel: There is a large heterogeneous pelvic mass containing soft tissue and air densities, measuring approximately 76 x 116 mm. Evaluation is limited due to lack of intravenous contrast, however focal thickening is seen in the sigmoid colon. The appendix is normal. Lymph nodes Retroperitoneal: Unremarkable. Mesenteric: Unremarkable. Pelvic: Unremarkable. Peritoneum: There is extensive soft tissue density and fat stranding throughout the abdomen. Vessels: Atherosclerotic calcifications are seen. Abdominal wall: Subcutaneous emphysema is seen in the left pelvic soft tissues. Bones: Degenerative changes in the visualized spine. IMPRESSION: Large heterogeneous pelvic collection with some pockets of air adjacent to the thickened sigmoid colon. Although evaluation is limited by noncontrast technique, this is favored to represent a hematoma with likely likely rectal perforation. Underlying mass cannot be entirely excluded, follow-up to resolution is recommended. ACT 112: Positive. There are findings on this exam that require communication between the performing entity and the patient following Patient Test Result Information Act ([place] Act 112) guidelines. Electronically signed by: Nate Betancourt M.D. 08/05/2021 12:59 PM Discharge Plan Visit Data Chief Complaint: Abdominal Pain Stated Complaint: RECTAL PAIN, ABDOMINAL PAIN ED Provider: Chaparro España Discharge Problem: Acute hemorrhage, Perforation of rectum, Anemia, Acute hypotension Patient Disposition: Admitted As Inpatient Discharge Instructions Interventions: ED Discharge Assessment Last Done: 08/05/21 15:15
[2021-08-05] MEDS: AZTREONAM 1,000 MG in DEXTROSE 5% 100 ML IV SCH (22:40)
[2021-08-05 22:53] LABS: Hematocrit (blood only) 28.4 % (37-47)
[2021-08-06] MEDS: metroNIDAZOLE 500 MG/100 ML BAG IV SCH ×3 (00:30→16:07)
[2021-08-06] MEDS: fentaNYL citrate 100 MCG/2 ML VIAL IV PRN ×4 (00:34→09:49)
[2021-08-06 01:10] LABS: Appearance Urine Clear (Clear); Bacteria Urine Automated Negative (Negative); Bilirubin Urine Negative (Negative); Blood Urine Trace (Negative); Color Urine Yellow; Epithelial Cell Urine Auto >30 /lpf (0-5); Glucose Urine UA Negative (Negative); Ketones Urine Trace (Negative); Leukocyte Esterase Urine Trace (Negative); Nitrite Urine Negative (Negative); Protein Urine 1+ (Negative); RBC Urine Automated 0-4 /hpf (0-4); Specific Gravity Urine 1.024 (1.000-1.030); Urobilinogen Urine Negative (Negative)
[2021-08-06 01:23] LABS: Renal Epithelial Cells Urine 0-5 /lpf (0-5)
[2021-08-06 02:30] LABS: Hemoglobin 8.2 g/dL (12.0-16.0); Immature Granulocytes # (auto) 0.03 K/uL (0.00-0.02); Immature Granulocytes % (auto) 0.3 %; Lymphocytes # (auto) 0.48 K/uL (1.2-3.4); Lymphocytes % (auto) 4.7 %; Mean Corpuscular Hemoglobin 28.9 pg (25-34); Mean Corpuscular Hgb Conc 31.5 g/dL (32-36); Mean Corpuscular Volume 91.5 fL (80-100); Mean Platelet Volume 10.7 fL (7.4-10.4); Monocytes # (auto) 0.77 K/uL (0.11-0.59); Monocytes % (auto) 7.5 %; Neutrophils # (auto) 8.95 K/uL (1.4-6.5); Neutrophils % (auto) 87.5 %; Platelet Count 457 K/uL (130-400); RDW Coefficient of Variation 23.2 % (11.5-14.5); RDW Standard Deviation 70.5 fL (36.4-46.3); Red Blood Count 2.84 M/uL (4.2-5.4); White Blood Count 10.23 K/uL (4.8-10.8)
[2021-08-06 02:46] LABS: INR 1.1 (0.9-1.1); Partial Thromboplastin Ratio 0.9; Partial Thromboplastin Time 24.9 Seconds (21.0-31.0); Prothrombin Time 11.4 Seconds (9.0-12.0)
[2021-08-06 02:50] LABS: Anisocytosis Present; Poikilocytosis Present
[2021-08-06 03:04] LABS: Albumin Level 2.8 gm/dl (3.4-5.0); BUN Creatinine Ratio 19.2 (10-20); Calcium 8.3 mg/dl (8.5-10.1); Creatinine Clr Calc Pharmacy 48.8 ml/min; Est GFR (African American) 69.1 ml/min; Est GFR (Non-African American) 59.6 ml/min; Potassium 4.5 mmol/L (3.5-5.1)
[2021-08-06 03:07] LABS: Bilirubin,Total 0.8 mg/dl (0.2-1); Globulin 2.9 gm/dl (2.5-4.0); Total Protein 5.7 gm/dl (6.4-8.2)
[2021-08-06] MEDS: AZTREONAM 1,000 MG in DEXTROSE 5% 100 ML IV SCH ×3 (06:00→21:06)
--- NOTE | 2021-08-06 08:09 | Surgery Progress Note ---
Date of Service August 06, 2021 Assessment & Plan (1) Hemoperitoneum: Plan: 08/06/2021 The patient has received 2 units of blood and her hemoglobin was 8.2 at 2 AM Repeat hemoglobin is pending Her blood pressure is expected improved with transfusion Her heart rate is still slightly elevated at 107 this morning At this point we will continue watching her in ICU for 24 hours follow her H&H Since she has no further nausea we can start on some liquids this morning At this point I see no reason to reimage her since clinically she appears to be improved I reviewed the CAT scan with the radiologist lobster fisherman who stated that he did not personally do the procedure but talked to the person that that and felt that and not amount of bleeding when biopsy needle was removed Reviewed the CAT scan image the patient does have some blood around the liver w hich would make an intraperitoneal does have what appears to be some air either in the rectal wall or just outside the rectum and a large pelvic hematoma ER physician performed a rectal exam there was no blood in the rectum Plan: Given the likely trajectory of the bone marrow needle is likely the patient may have had some injury to the venous plexus around the sacral area with possibly the needle going into the rectum itself but since the patient has blood intraperitoneally I suspect that the trajectory of the needle involved by dilating the peritoneum (if this is the case the last resort would be to try to explore these veins could be treacherous to control) At this point recommended the patient be transferred to the ICU transfused monitor her closely If she continues to bleed and we will obtain a CT angiogram she is allergic to the contrast she will need to be premedicated with steroids She will be given 2 units of blood at this time get serial hemoglobin insert Bethea catheter The case was discussed with the apprentice electrician the ER physician and the hospitalist with the patient and significant other Admission and Anticipated Discharge Date Admission Date: August 05, 2021 Subjective Overall feels much better today no further nausea states her belly pain is better she is able to move a little bit more yesterday she just laid to the right side Physical Exam Physical Exam: Is alert coherent much more comfortable than yesterday Vitals noted along with the last hemoglobin drawn at 2 AM The abdomen still slightly distended but less tender than yesterday Results & Data ([facility]) Vital Signs (Past 12 Hours) Vital Signs Temp Pulse Pulse Resp BP BP Pulse Ox 08/06/21 06:00 107 H 21 134/73 97 08/06/21 05:00 108 H 29 H 120/68 97 08/06/21 04:00 99 H 25 H 124/65 98 08/06/21 03:00 105 H 26 H 128/73 97 08/06/21 02:00 99 H 37 H 130/73 99 08/06/21 01:30 99 H 24 125/68 98 08/06/21 01:00 101 H 27 H 125/71 99 08/06/21 00:30 98 H 25 H 121/66 98 08/06/21 00:00 102 H 28 H 110/58 L 98 08/05/21 23:40 107 H 08/05/21 23:04 36.8 C 95 H 16 106/66 98 08/05/21 23:00 110 H 24 132/77 98 08/05/21 21:32 37 C 114 H 24 135/89 97 08/05/21 20:32 36.8 C 107 H 24 133/73 90 PG Care Time/CCT Total # of Minutes Spent Total Time Spent with Patient: Total time spent is greater than 50% in coordination of care (as documented) at patient's floor/unit and/or counseling patient: Coding Level of Care Code 40773 Subseq Hosp Care Lvl 2 Diagnoses Hemoperitoneum K66.1
--- NOTE | 2021-08-06 09:01 | Consultation Report ---
HEMATOLOGY CONSULTATION DATE OF SERVICE: 08/05/2021. REASON FOR CONSULTATION: Iatrogenic hematoma attributable to bone marrow biopsy in a 76-year-old fem gracy with history of myeloproliferative disease. HISTORY OF PRESENT ILLNESS: Sofiya Breen is a very pleasant 76-year-old longstanding CCP patient of josefina hearn who I follow for essential thrombocythemia, and subsequent drop in hemoglobin, suspected emerging myelodysplasia. Sofiya was in our office yesterday underwent bone marrow biopsy and aspiration by my physician machine spreader, KELL Lombardi. Procedure had gone pretty much routinely; however, shortl y thereafter Sofiya developed sacral pain and tenesmus-like symptomatology. She actually tried to go to the bathroom and at one point was utilizing Valsalva vigorously, which probably exacerbated the bl eed. That said, she was in our recovery suite for approximately 1 hour post-procedural and her pain was worsening and thus she was sent to the emergency room for further evaluation and management. A C T scan of the abdomen and pelvis revealed a collection of blood in the presacral region and retroperi toneum. There was also a small amount of free air seen in the lower portion of the rectum. The nicole ent subsequently was admitted to the ICU for intensive monitoring. She received 2 units of packed RB Cs, which resulted in dilutional drop in platelets. Again, Sofiya has a longstanding history of essen tial thrombocythemia, had been on Hydrea until about a month or two ago when a precipitous drop in he moglobin was noted and thus held drug. Bone marrow biopsy and aspiration was ordered to evaluate her for possible emerging myelodysplasia. She is currently being evaluated by general surgery and [facility] plumbing and heating mechanic. PAST MEDICAL HISTORY: Significant for myeloproliferative disease, fibromyalgia. She has history of laryngeal cancer, superficial bladder cancer, multinodular goiter, peripheral neuropathy, irritable b owel syndrome, hyperlipidemia, depression with anxiety. PAST SURGICAL HISTORY: Tubal ligation. MEDICATIONS PRIOR TO ADMISSION: Aspirin 81 mg p.o. daily, buspirone 10 mg p.o. t.i.d., calcium carbo kris 1200 mg p.o. b.i.d., cimetidine 400 mg p.o. at bedtime, diazepam 2 mg p.o. UD p.r.n., hydroxyure a is currently on hold, meclizine 12.5 mg p.o. UD p.r.n., MiraLax 17 g p.o. every other day, pravasta tin 20 mg p.o. daily, cyclobenzaprine 5 mg p.o. UD p.r.n., metoprolol 12.5 mg p.o. daily. ALLERGIES: List is lengthy, ALENDRONATE, BACTRIM, DOXYCYCLINE, ERYTHROMYCIN, GLUCOSAMINE, LEVOFLOXAC IN, PROTONIX, PHENYLPROPANOLAMINE, SERTRALINE, SULFAMETHOXAZOLE, THAT IS BACTRIM, FLUCONAZOLE, GATIFL OXACIN, GENTAMICIN, TOBRAMYCIN, ____, CHONDROITIN, AND PENICILLIN. SOCIAL HISTORY: The patient is retired, lives with her . She is a reformed smoker. Negative for alcohol or illicit drugs. FAMILY HISTORY: Noncontributory. REVIEW OF SYSTEMS: CONSTITUTIONAL: As per HPI, most notably for left hip sacral pain, discomfort. No fevers, chills, o r sweats. She is not anorexic or losing weight. SKIN: No rashes or lesions. No history of dermatoses. HEENT: Negative for headaches, lightheadedness, or dizziness. No acute visual or hearing deficits. No sinus symptoms, sore throat, or dysphagia. LYMPHATICS: No history of lymphoproliferative disease. CARDIAC: No current angina or palpitations. PULMONARY: Positive for COPD. She is not acutely short of breath, dyspneic, or orthopneic. No coug h or hemoptysis. GASTROINTESTINAL: Negative for abdominal pain, nausea, vomiting, diarrhea or constipation, hematoche walker or melena stools. GENITOURINARY: She has history of superficial bladder cancer. No current hematuria or dysuria. No urinary incontinence. PSYCHIATRIC: Positive for depression/anxiety. MUSCULOSKELETAL: No focal weakness. No arthralgias. She suffers from fibromyalgia. ENDOCRINE: Negative for diabetes or thyroid disease. NEUROLOGIC: Negative for seizure, stroke, or migraine headache. HEMATOLOGIC: As per HPI. PHYSICAL EXAMINATION: GENERAL: Sofiya is a very pleasant 76-year-old female in no acute distress. VITAL SIGNS: Temperature 36.8, pulse 107, respiratory rate 21, blood pressure 134/73. SKIN: Warm, dry, noncyanotic without petechiae, rash, or ecchymosis. HEENT: Head atraumatic, normocephalic. Eyes: PERRLA. EOMI. Nares patent without rhinorrhea or dis charge. Throat clear. Tongue midline. Mucous membranes are moist. NECK: Supple without JVD or thyromegaly. LYMPHATICS: No cervical or supraclavicular palpable nodes. HEART: Regular rate and rhythm. No clicks, rubs, murmurs, or gallops. LUNGS: Diffuse rhonchi heard in all dubois. ABDOMEN: Soft, nontender, nondistended, without palpable hepatosplenomegaly. EXTREMITIES: No clubbing, cyanosis, or edema. MUSCULOSKELETAL: Strength and pulses are equal in all 4 quadrants. NEUROLOGIC: Grossly intact. LABORATORY DATA: WBC count 10,230, hemoglobin 8.2, platelet count 457,000. Coags, PT 11.4 seconds, PTT 24.9 seconds. Sodium 140, potassium 4.5, chloride 110, carbon dioxide 24, BUN 18, creatinine 0.9 2, albumin 2.8. Urinalysis, wbc's 10-30 per high powered field, trace leukocyte esterase. IMPRESSION: 1. Iatrogenic hematoma attributable to bone marrow biopsy. 2. Essential thrombocythemia. 3. Hemoperitoneum secondary to #1. 4. Question of bowel perforation. 5. Fibromyalgia. PLAN: I appreciate the assistance in Sofiya's case. She is a longstanding myeloproliferative patient at [facility], had been on Hydrea for essential thrombocythemia for many years. Earlier this summer, I too k notice that her hemoglobin had dropped at least 2 g for reasons unclear. She was not actively blee ding from the genitourinary or GI tract by history. Thus had her stop Hydrea and ordered a bone lila ow biopsy and aspiration, which was done by my physician machine spreader yesterday. According to KELL Landeros, there were no complications during the procedure. She was able to anchor the biopsy need le without difficulty and was able to obtain a very good specimen not only for flow cytometry and cyt ogenetics, but also pathologic analysis. Shortly after the procedure, Ms. Moss did comment blee ding was difficult to stop by pressure and thus the patient was observed for at least 1 hour postproc edurally. When the pain did not subside, she was sent to the emergency room where a CT scan showed a relatively large collection of blood in the presacral space and retroperitoneum as well as unexplain ed free air, which was described as a small amount. The patient received 2 units of packed RBCs and thus far seems to be holding her hemoglobin stable. She will continue observation for the next 24 to 48 hours. I would recommend H and H monitoring every six 6-8 hours throughout her stay. My concern , with continued bleeding patients that have elevated platelet counts can develop acquired von Willeb rand's and thus would utilize cryoprecipitate in this situation to allen further hemorrhage. I will plan to see Sofiya in followup to discuss marrow results and keep Hydrea on hold for now. Thank you very much for allowing me to participate in Sofiya's care. Job ID: [id number]
[2021-08-06 09:16] LABS: Hematocrit (blood only) 24.6 % (37-47); Hemoglobin 7.9 g/dL (12.0-16.0)
[2021-08-06] MEDS ORDERED: CYCLOBENZAPRINE HCL 5 MG TAB PO PRN (10:21)
[2021-08-06] MEDS ORDERED: diazePAM 2 MG TABLET PO PRN (10:21)
--- NOTE | 2021-08-06 10:21 | Hospitalist Progress Note ---
Date of Service August 06, 2021 Assessment & Plan (1) Hemoperitoneum: Plan: Hemoperitoneum as a complication of biopsy. CT a/p on 08/05 on "large heterogeneous pelvic collection with some pockets of air adjacent to the thickened sigmoid colon." Received 2 units PRBCs on 08/05. -> Hgb now 7.9 today. Monitor. - Continue abx: daptomycin, aztreonam, and Flagyl - Gen surg following: No present need for surgical intervention. (2) Bowel perforation: Plan: Antibiotics as above, management and surgical consult as above (3) Thrombocythemia: Plan: Diagnosed with ET. Had been on hydroxyurea, but had to stop due to anemia. No acute management, patient undergoing oncologic work-up as outpatient with biopsy as noted above. Aspirin held for acute bleeding (4) Peripheral neuropathy: Plan: Improved at time of assessment. Follow clinically (5) Multinodular goiter: Plan: No acute management (6) Fibromyalgia: Plan: Pain control as needed, balance pain control against hypotension with above Oral meds held in the setting of hemoperitoneum and treatment as above (7) Hyperlipidemia: Plan: Continue Pravachol (8) Depression with anxiety: Plan: Continue BuSpar and diazepam Plan: DVT prophylaxis: SCDs, pharmacal prophylaxis contraindicated in the setting of bleeding Admission and Anticipated Discharge Date Admission Date: August 05, 2021 Subjective Feeling better today. Less pain. Reports no fevers/chills, chest pain, shortness of breath, abdominal pain, nausea, or vomiting. Physical Exam Constitutional: WD/WN, vitals as above Eyes: EOM intact bilaterally; no conjunctival abnormality ENMT: external ear and nose normal, oropharynx normal Neck: trachea midline, no thyromegaly normal visual inspection Respiratory: normal respiratory effort, lungs clear to auscultation no respiratory distress Cardiovascular: RRR, no murmur, no edema Gastrointestinal (Abdomen): Inspection/Auscultation: abdomen normal to inspection; abdomen not distended Musculoskeletal: no cyanosis or clubbing, extremities motor strength 5/5 Skin: no rashes, warm and dry Neurologic: moves all extremities and awake Psychiatric: Orientation: alert, oriented to person and cooperative Results & Data Results & Data ([facility]) Vital Signs (Past 12 Hours) Vital Signs Temp Pulse Pulse Resp BP BP Pulse Ox 08/06/21 09:00 36.6 C 116 H 23 122/91 97 08/06/21 07:00 108 H 21 130/63 96 08/06/21 06:00 107 H 21 134/73 97 08/06/21 05:00 108 H 29 H 120/68 97 08/06/21 04:00 99 H 25 H 124/65 98 08/06/21 03:00 105 H 26 H 128/73 97 08/06/21 02:00 99 H 37 H 130/73 99 08/06/21 01:30 99 H 24 125/68 98 08/06/21 01:00 101 H 27 H 125/71 99 08/06/21 00:30 98 H 25 H 121/66 98 08/06/21 00:00 102 H 28 H 110/58 L 98 08/05/21 23:40 107 H 08/05/21 23:04 36.8 C 95 H 16 106/66 98 08/05/21 23:00 110 H 24 132/77 98 PG Care Time/CCT Total # of Minutes Spent Total Time Spent with Patient: Total time spent is greater than 50% in coordination of care (as documented) at patient's floor/unit and/or counseling patient: Coding Level of Care Code 97769 Subseq Hosp Care Lvl 3 Diagnoses Hemoperitoneum K66.1 Bowel perforation K63.1 Thrombocythemia D75.839 Peripheral neuropathy G62.9 Multinodular goiter E04.2 Fibromyalgia M79.7 Hyperlipidemia E78.5 Depression with anxiety F41.8
[2021-08-06] MEDS: METOPROLOL TARTRATE 25 MG TAB PO SCH (11:22)
[2021-08-06] MEDS ORDERED: FAMOTIDINE 10 MG TABLET PO STA (12:35)
[2021-08-06] MEDS: ACETAMINOPHEN 325 MG TAB PO PRN (12:53)
[2021-08-06] MEDS: diazePAM 2 MG TABLET PO PRN (12:54)
[2021-08-06] MEDS: busPIRone 5 MG TAB PO SCH ×2 (12:55→19:53)
[2021-08-06] MEDS ORDERED: DAPTOmycin 325 MG in SYRINGE 0 ML IV SCH (13:00)
--- NOTE | 2021-08-06 13:12 | Communication Note ---
Date of Service: August 06, 2021 Vital signs and labs reviewed. Hemodynamically stable. Low-dose beta-jimenez restarted due to tachycardia which also may be mediated by the acute anemia. Hemoglobin appears stable. Patient stable for downgrade to PCU status. Discussed with the hospitalist.
[2021-08-06 15:27] LABS: Hematocrit (blood only) 22.8 % (37-47); Hemoglobin 7.3 g/dL (12.0-16.0)
[2021-08-06] MEDS: MoRPHine SULFATE 2 MG/ML CARP IV PRN ×3 (16:04→23:58)
[2021-08-06] MEDS: PRAVASTATIN SOD 20 MG TAB PO SCH (16:07)
[2021-08-06] MEDS: MECLIZINE 12.5 MG TAB PO PRN (17:07)
[2021-08-07] MEDS ORDERED: SODIUM CHLORIDE 0.65% NA SOLN 45 ML (OCEAN) ONE (00:01)
[2021-08-07] MEDS ORDERED: SODIUM CHLORIDE 0.65% NA SOLN 45 ML (OCEAN) STA (00:12)
[2021-08-07] MEDS: metroNIDAZOLE 500 MG/100 ML BAG IV SCH ×4 (00:16→23:05)
[2021-08-07] MEDS: MoRPHine SULFATE 2 MG/ML CARP IV PRN ×5 (04:15→21:53)
[2021-08-07] MEDS: AZTREONAM 1,000 MG in DEXTROSE 5% 100 ML IV SCH ×3 (05:53→21:56)
[2021-08-07 06:44] LABS: Hematocrit (blood only) 21.3 % (37-47); Hemoglobin 6.7 g/dL (12.0-16.0); Mean Corpuscular Hgb Conc 31.5 g/dL (32-36); Mean Corpuscular Volume 92.2 fL (80-100); Mean Platelet Volume 10.5 fL (7.4-10.4); Platelet Count 407 K/uL (130-400); RDW Coefficient of Variation 23.6 % (11.5-14.5); RDW Standard Deviation 72.8 fL (36.4-46.3); Red Blood Count 2.31 M/uL (4.2-5.4); White Blood Count 10.27 K/uL (4.8-10.8)
[2021-08-07] MEDS ORDERED: SODIUM CHLORIDE 0.9% 250 ML IV PRN (07:00)
[2021-08-07 07:17] LABS: BUN Creatinine Ratio 30.9 (10-20); Calcium 8.2 mg/dl (8.5-10.1); Est GFR (African American) 100.1 ml/min; Est GFR (Non-African American) 86.4 ml/min; Magnesium 2.1 mg/dl (1.8-2.4); Potassium 4.2 mmol/L (3.5-5.1)
--- NOTE | 2021-08-07 07:30 | Surgery Progress Note ---
Date of Service August 07, 2021 Assessment & Plan (1) Hemoperitoneum: Plan: 08/07/21 Patient is 2 days post procedural bleed She has had 2 units of blood her hemoglobin this morning 6.2 Her blood pressure noted her heart rates 123 At this point without any significant bleed part of the low hemoglobin may be secondary to the fluid resuscitation which by tomorrow should start mobilizing fluids With benefits for another unit of blood at this time We will increase her diet 08/06/2021 The patient has received 2 units of blood and her hemoglobin was 8.2 at 2 AM Repeat hemoglobin is pending Her blood pressure is expected improved with transfusion Her heart rate is still slightly elevated at 107 this morning At this point we will continue watching her in ICU for 24 hours follow her H&H Since she has no further nausea we can start on some liquids this morning At this point I see no reason to reimage her since clinically she appears to be improved I reviewed the CAT scan with the radiologist intelligence research specialist who stated that he did not personally do the procedure but talked to the person that that and felt that and not amount of bleeding when biopsy needle was removed Reviewed the CAT scan image the patient does have some blood around the liver which would make an intraperitoneal does have what appears to be some air either in the rectal wall or just outside the rectum and a large pelvic hematoma ER physician performed a rectal exam there was no blood in the rectum Plan: Given the likely trajectory of the bone marrow needle is likely the patient may have had some injury to the venous plexus around the sacral area with possibly the needle going into the rectum itself but since the patient has blood intraperitoneally I suspect that the trajectory of the needle involved by dilating the peritoneum (if this is the case the last resort would be to try to explore these veins could be treacherous to control) At this point recommended the patient be transferred to the ICU transfused monitor her closely If she continues to bleed and we will obtain a CT angiogram she is allergic to the contrast she will need to be premedicated with steroids She will be given 2 units of blood at this time get serial hemoglobin insert Bethea catheter The case was discussed with the trucking contractor the ER physician and the hospitalist with the patient and significant other Admission and Anticipated Discharge Date Admission Date: August 05, 2021 Subjective Overall she feels better stating she has less abdominal discomfort no nausea or emesis start passing some flatus was up in a chair yesterday Physical Exam Physical Exam: Alert coherent in no distress The abdomen less tender less distended Results & Data ([facility]) Vital Signs (Past 12 Hours) Vital Signs Temp Pulse Pulse Resp BP Pulse Ox 08/07/21 04:34 93 08/07/21 04:33 36.7 C 123 H 20 131/66 78 L 08/06/21 23:48 37.1 C 102 H 22 106/66 90 08/06/21 22:19 102 H 08/06/21 19:35 36.6 C 102 H 22 115/69 91 PG Care Time/CCT Total # of Minutes Spent Total Time Spent with Patient: Total time spent is greater than 50% in coordination of care (as documented) at patient's floor/unit and/or counseling patient: Coding Level of Care Code 04387 Subseq Hosp Care Lvl 3 Diagnoses Hemoperitoneum K66.1
[2021-08-07] MEDS: METOPROLOL TARTRATE 25 MG TAB PO SCH (08:55)
[2021-08-07] MEDS: busPIRone 5 MG TAB PO SCH ×3 (08:55→21:56)
[2021-08-07] MEDS: diazePAM 2 MG TABLET PO PRN (09:00)
[2021-08-07] MEDS ORDERED: diphenhydrAMINE Capsule 25 MG CAP PO ONE (09:24)
[2021-08-07] MEDS ORDERED: ACETAMINOPHEN 500 MG TAB PO STA (09:24)
--- NOTE | 2021-08-07 09:53 | Progress Notes ---
HEMATOLOGY PROGRESS NOTE DATE OF SERVICE: 08/07/2021 DIAGNOSES: 1. Iatrogenic hematoma attributable to bone marrow biopsy. 2. Essential thrombocythemia. 3. Hemoperitoneum secondary to iatrogenic hematoma attributable to bone marrow biopsy. 4. Possible bowel perforation. 5. Fibromyalgia. 6. Anemia attributable to bleeding. SUBJECTIVE: Sofiya was seen and examined this morning. Took note of her hemoglobin once again dropping. I spoke to Dr. Desai, who is managing Sofiya. A stat CT will be ordered and done this morning. Two units of packed RBCs to be transfused. Her pain seems to be getting a bit better. Obviously a concern remains regarding the status of her rectum and possible perforation. The patient has not yet moved her bowels since admission. Pain seems to be reasonably well controlled. No fevers, chills, or other symptoms are reported by nursing overnight. OBJECTIVE: GENERAL: A very pleasant 76-year-old female, awake, alert, appropriate, in no acute distress. VITAL SIGNS: Temperature 36.8, pulse 98, respiratory rate 18, blood pressure 118/66. SKIN: A bit pale in appearance. Turgor is fair. No rashes or lesions otherwise. HEENT: Buccal mucosa without erythema or ulceration. HEART: Tachy, but regular. LUNGS: Tubular breath sounds heard in all dubois. No rales or rhonchi appreciated. ABDOMEN: Soft, nontender, nondistended. EXTREMITIES: No clubbing, cyanosis or edema. NEUROLOGIC: Grossly intact. LABORATORY DATA: WBC count 10,270, hemoglobin 6.7, platelet count 407. Sodium 136, potassium 4.2, chloride 107, carbon dioxide 25, creatinine 0.62, BUN 19. IMPRESSION: 1. Hemoperitoneum. 2. Possible bowel perforation. 3. Essential thrombocythemia. 4. Progressive anemia. 5. Peripheral neuropathy. PLAN: Agree with Dr. Desai, stat CT should be done to determine status of the hematoma. Obviously, she dropped her hemoglobin, which would suggest she's continuing to bleed. Perhaps cryoprecipitate would be reasonable at this juncture. The hydroxyurea remains on hold. Her platelet count is presently 407,000, which is actually quite good for Sofiya. We will await surgery's input. We will continue to follow Sofiya regularly. I have nothing further to add at this time. Job ID: [id number] [facility]
[2021-08-07] MEDS ORDERED: OPTIRAY 320 125ml IV ONE (11:04)
--- NOTE | 2021-08-07 11:45 | CT Scan Report ---
CT ANGIOGRAPHY OF THE ABDOMEN AND PELVIS CLINICAL HISTORY: Intraperitoneal bleed. COMPARISON STUDY: CT of the abdomen and pelvis August 05, 2021. TECHNIQUE: Patient was premedicated for IV dye allergy. Helical axial images of the abdomen and pelvi s were obtained during arterial phase following intravenous injection of 120 cc Optiray 320 IV. Sagit rebeca and coronal reconstructions were viewed as well as maximal intensity projections on an [employer] 3-D workstation. Automated exposure control was utilized for the study. A dose lowering technique was utilized adhering to the principles of ALARA. FINDINGS: A small right pleural effusion with extensive right lower lobe airspace opacity has develop ed since prior CT. No pneumatosis or portal venous gas is present. Arterial phase images of the liver , spleen, adrenal glands, kidneys and pancreas are unremarkable. There is no biliary or pancreatic du ctal dilatation. There is no hydronephrosis. Subtle sclerosis within visualized skeletal structures i s nonspecific. There is no evidence for a bowel obstruction. The appendix is normal. The right search engine marketing manager ior uterine fibroid is present. There is gas within the bladder as well as a Bethea balloon. Narrowing of the proximal celiac axis with abnormal configuration is due to the median arcuate ligame nt. Otherwise, the branch vessels are patent. There is moderate plaque of the abdominal aorta. There is no aneurysmal dilatation. No pseudoaneurysm is identified on this examination. There is no definit e active extravasation. Note is made of a linear hyperdense focus within the rectum shown on axial im age 396 of 476. This could represent stool however a small focus of active extravasation could appear similar. The rectum is displaced anteriorly by the large presacral hematoma. This hematoma is unchan ged in size since CT of August 05, 2021. It measures 10.9 x 10.5 x 7.9 cm. A small amount of extralu bertram gas is noted. This has decreased since prior CT. Moderate associated retroperitoneal hemorrhage is similar to prior exam. There is a small amount of intraperitoneal hemorrhage. The source of the h ematoma is not entirely clear on this examination. IMPRESSION: 1. No change in a large presacral hematoma, measuring 10.9 x 10.5 x 7.9 cm, since CT of August 05 021. Moderate retroperitoneal hemorrhage and a small amount of intraperitoneal hemorrhage is similar to prior exam. Interval decrease in a small amount of extraluminal gas. 2. Linear hyperdense focus within the rectum. This could reflect stool. However, a small focus of act javid extravasation could appear similar. Correlation with hematochezia is recommended. As before, rect um displaced anteriorly by the presacral hematoma. Although not visualized, underlying rectal injury cannot be excluded. 3. Interval development of a small right pleural effusion with segmental right lower lobe atelectasis . ACT 112: Negative or not required by law. Electronically signed by: Junior Storm M.D. 08/07/2021 11:43 AM
--- NOTE | 2021-08-07 14:34 | Hospitalist Progress Note ---
Date of Service August 07, 2021 Assessment & Plan (1) Hemoperitoneum: Plan: Hemoperitoneum as a complication of biopsy. CT a/p on 08/05 on "large heterogeneous pelvic collection with some pockets of air adjacent to the thickened sigmoid colon." Received 2 units PRBCs on 08/05. -> Hgb was 6.7 on 08/07. 2 additional units of PRBCs ordered. - Continue abx: aztreonam and Flagyl - Gen surg following: No present need for surgical intervention. - CTA a/p on 08/07 showed stable RP hematoma. Will check rectal vault for bright red blood as only area of possible extravasation was in rectum. (2) Bowel perforation: Plan: Antibiotics as above, management and surgical consult as above (3) Thrombocythemia: Plan: Diagnosed with ET. Had been on hydroxyurea, but had to stop due to anemia. No acute management, patient undergoing oncologic work-up as outpatient with biopsy as noted above. Aspirin held for acute bleeding (4) Peripheral neuropathy: Plan: Improved at time of assessment. Follow clinically (5) Multinodular goiter: Plan: No acute management (6) Fibromyalgia: Plan: Pain control as needed, balance pain control against hypotension with above Oral meds held in the setting of hemoperitoneum and treatment as above (7) Hyperlipidemia: Plan: Continue Pravachol (8) Depression with anxiety: Plan: Continue BuSpar and diazepam Plan: DVT prophylaxis: SCDs, pharmacal prophylaxis contraindicated in the setting of bleeding Admission and Anticipated Discharge Date Admission Date: August 05, 2021 Subjective Still with abdominal pain, but otherwise doing well. Reports no fevers/chills, chest pain, shortness of breath, nausea, or vomiting. Physical Exam Constitutional: WD/WN, vitals as above Eyes: EOM intact bilaterally; no conjunctival abnormality ENMT: external ear and nose normal, oropharynx normal Neck: trachea midline, no thyromegaly normal visual inspection Respiratory: normal respiratory effort, lungs clear to auscultation no respiratory distress Cardiovascular: RRR, no murmur, no edema Gastrointestinal (Abdomen): Inspection/Auscultation: abdomen normal to inspection; abdomen not distended Musculoskeletal: no cyanosis or clubbing, extremities motor strength 5/5 Skin: no rashes, warm and dry Neurologic: moves all extremities and awake Psychiatric: Orientation: alert, oriented to person and cooperative Results & Data Results & Data ([facility]) Vital Signs (Past 12 Hours) Vital Signs Temp Pulse Pulse Resp BP BP Pulse Ox 08/07/21 13:31 37.1 C 89 18 115/70 94 08/07/21 12:31 37.1 C 100 H 20 108/52 L 91 08/07/21 12:28 37.1 C 100 H 20 108/52 L 91 08/07/21 12:01 37.2 C 93 H 18 143/77 H 95 08/07/21 11:46 37 C 91 H 20 115/65 98 08/07/21 11:29 36.5 C 102 H 18 122/91 98 08/07/21 11:15 36.5 C 83 18 110/63 98 08/07/21 07:32 36.8 C 98 H 18 118/66 95 08/07/21 04:34 93 08/07/21 04:33 36.7 C 123 H 20 131/66 78 L PG Care Time/CCT Total # of Minutes Spent Total Time Spent with Patient: Total time spent is greater than 50% in coordination of care (as documented) at patient's floor/unit and/or counseling patient: Coding Level of Care Code 87324 Subseq Hosp Care Lvl 2 Diagnoses Hemoperitoneum K66.1 Bowel perforation K63.1 Thrombocythemia D75.839 Peripheral neuropathy G62.9 Multinodular goiter E04.2 Fibromyalgia M79.7 Hyperlipidemia E78.5 Depression with anxiety F41.8
[2021-08-07] MEDS: PRAVASTATIN SOD 20 MG TAB PO SCH (16:29)
[2021-08-07] MEDS: guaiFENesin 600 MG TABCR PO SCH ×3 (16:53→21:55)
[2021-08-08] MEDS: AZTREONAM 1,000 MG in DEXTROSE 5% 100 ML IV SCH ×3 (05:34→21:37)
[2021-08-08 06:49] LABS: BUN Creatinine Ratio 22.6 (10-20); Calcium 8.3 mg/dl (8.5-10.1); Creatinine Clr Calc Pharmacy 81.7 ml/min; Est GFR (African American) 105.4 ml/min; Est GFR (Non-African American) 90.9 ml/min; Magnesium 2.2 mg/dl (1.8-2.4); Potassium 3.8 mmol/L (3.5-5.1)
[2021-08-08 07:23] LABS: Hemoglobin 9.9 g/dL (12.0-16.0); Mean Corpuscular Hemoglobin 29.9 pg (25-34); Mean Corpuscular Hgb Conc 31.9 g/dL (32-36); Mean Corpuscular Volume 93.7 fL (80-100); Mean Platelet Volume 10.9 fL (7.4-10.4); Nucleated RBC # (auto) 0.06 K/uL (0-0); Nucleated RBC % (auto) 0.5 %; Platelet Count 345 K/uL (130-400); Platelet Estimate Normal (Normal); RDW Coefficient of Variation 20.1 % (11.5-14.5); RDW Standard Deviation 63.2 fL (36.4-46.3); Red Blood Count 3.31 M/uL (4.2-5.4); White Blood Count 11.35 K/uL (4.8-10.8)
--- NOTE | 2021-08-08 07:51 | Surgery Progress Note ---
Date of Service August 08, 2021 Assessment & Plan (1) Hemoperitoneum: Plan: 08/08/2021 Apparently last night the patient has CT angiogram which showed no increase in size of the intra-abdominal and retroperitoneal bleed the gas of that was initially saw around the rectum has decreased in size The patient has received total 4 units of blood her hemoglobin this morning is 9.9 The Bethea catheter still in we will remove it and increase her activity No active bleeding placement is equilibrating for blood loss The concern I had more than the hemoperitoneum blood loss was the air around the rectum and with this time showing decrease in size and no clinical evidence of sepsis we will continue observation [facility] surgeons covering the weekend 08/07/21 Patient is 2 days post procedural bleed She has had 2 units of blood her hemoglobin this morning 6.2 Her blood pressure noted her heart rates 123 At this point without any significant bleed part of the low hemoglobin may be secondary to the fluid resuscitation which by tomorrow should start mobilizing fluids With benefits for another unit of blood at this time We will increase her diet 08/06/2021 The patient has received 2 units of blood and her hemoglobin was 8.2 at 2 AM Repeat hemoglobin is pending Her blood pressure is expected improved with transfusion Her heart rate is still slightly elevated at 107 this morning At this point we will continue watching her in ICU for 24 hours follow her H&H Since she has no further nausea we can start on some liquids this morning At this point I see no reason to reimage her since clinically she appears to be improved I reviewed the CAT scan with the radiologist identification clerk who stated that he did not personally do the procedure but talked to the person that that and felt that and not amount of bleeding when biopsy needle was removed Reviewed the CAT scan image the patient does have some blood around the liver which would make an intraperitoneal does have what appears to be some air either in the rectal wall or just outside the rectum and a large pelvic hematoma ER physician performed a rectal exam there was no blood in the rectum Plan: Given the likely trajectory of the bone marrow needle is likely the patient may have had some injury to the venous plexus around the sacral area with possibly the needle going into the rectum itself but since the patient has blood intraperitoneally I suspect that the trajectory of the needle involved by dilating the peritoneum (if this is the case the last resort would be to try to explore these veins could be treacherous to control) At this point recommended the patient be transferred to the ICU transfused monitor her closely If she continues to bleed and we will obtain a CT angiogram she is allergic to the contrast she will need to be premedicated with steroids She will be given 2 units of blood at this time get serial hemoglobin insert Bethea catheter The case was discussed with the nursing home manager the ER physician and the hospitalist with the patient and significant other Admission and Anticipated Discharge Date Admission Date: August 05, 2021 Subjective Still with abdominal pain, but otherwise doing well. Reports no fevers/chills, chest pain, shortness of breath, nausea, or vomiting. 08-08-2021 The patient has some lower abdominal discomfort he is not nauseated no vomiting tolerating her diet yesterday passing flatus Physical Exam Physical Exam: Alert coherent in no distress The abdomen less tender less distended 08/08/2021 The abdomen is slightly more distended but soft with minimal right lower quadrant guarding Results & Data ([facility]) Vital Signs (Past 12 Hours) Vital Signs Temp Pulse Pulse Resp BP BP Pulse Ox 08/08/21 05:36 20 97 08/08/21 03:20 37.2 C 97 H 18 145/77 H 94 08/07/21 23:02 37.5 C 101 H 20 146/75 H 94 08/07/21 22:19 103 H 08/07/21 22:06 168/91 H 08/07/21 21:52 178/86 H PG Care Time/CCT Total # of Minutes Spent Total Time Spent with Patient: Total time spent is greater than 50% in coordination of care (as documented) at patient's floor/unit and/or counseling patient: Coding Level of Care Code 97103 Subseq Hosp Care Lvl 3 Diagnoses Hemoperitoneum K66.1
[2021-08-08] MEDS: MoRPHine SULFATE 2 MG/ML CARP IV PRN ×4 (07:54→22:33)
[2021-08-08] MEDS: diazePAM 2 MG TABLET PO PRN (07:54)
[2021-08-08] MEDS: metroNIDAZOLE 500 MG/100 ML BAG IV SCH ×2 (07:54→16:20)
[2021-08-08] MEDS: guaiFENesin 600 MG TABCR PO SCH ×2 (07:58→20:41)
[2021-08-08] MEDS: METOPROLOL TARTRATE 25 MG TAB PO SCH (07:58)
[2021-08-08] MEDS ORDERED: FUROSEMIDE INJ 20 MG/2 ML VIAL IV ONE (07:59)
[2021-08-08] MEDS: busPIRone 5 MG TAB PO SCH ×3 (07:59→20:40)
[2021-08-08] MEDS: POLYETHYLENE (MIRALAX) 17 GM PACK PO SCH (08:39)
--- NOTE | 2021-08-08 09:32 | Progress Notes ---
HEMATOLOGY PROGRESS NOTE DATE OF SERVICE: 08/08/2021 DIAGNOSES: 1. Iatrogenic hematoma attributable to bone marrow biopsy. 2. Essential thrombocythemia. 3. Hemoperitoneum secondary to hematoma. 4. Possible bowel perforation. 5. Fibromyalgia. 6. Progressive anemia attributable to active bleeding. SUBJECTIVE: Sofiya was seen and examined this morning. She seems to be in better spirits. Has not really gotten out of bed, nor has she moved her bowels. CT scan done yesterday revealed a stable hematoma and really no increase in the free air previously seen. She remains largely asymptomatic other than tachycardia. Hemoglobin after receiving 2 units of packed RBCs is 9.9 g/dL. Platelet count 345,000, which will definitely improve Sofiya's spirits. Nursing reports no overnight difficulties otherwise. OBJECTIVE: GENERAL: A very pleasant 76-year-old female, awake, alert, appropriate, in no acute distress. VITAL SIGNS: Temperature 37.2, pulse 97, respiratory rate 20, blood pressure 145/77. SKIN: Without rash or lesion. HEENT: No buccal lesions or ulceration. HEART: Tachy, but regular. LUNGS: Tubular breath sounds heard diffusely. No rales or rhonchi appreciated. ABDOMEN: Soft, nontender, nondistended. EXTREMITIES: Pneumatic devices in place. NEUROLOGIC: Grossly intact. LABORATORY DATA: WBC count 11,350, hemoglobin 9.9, platelet count 345,000. Sodium 136, potassium 3.8, chloride 104, carbon dioxide 28, creatinine 0.53, BUN 12. RADIOGRAPHIC DATA: CTA of the abdomen: No change in the large presacral hematoma 10.9 x 10.5 x 7.9. Moderate retroperitoneal hemorrhage and small amount of intraperitoneal hemorrhage similar to prior examination. Linear hyperdense focus within the rectum, thought to reflect stool. IMPRESSION: 1. Hemoperitoneum attributable to hematoma. 2. Possible bowel perforation. 3. Essential thrombocythemia. 4. Progressive anemia. 5. Peripheral neuropathy. PLAN: Discussed the case today with Dr. Cabrera and Dr. Desai, managing hospitalist. I think we can hold off on further transfusion at this point and hopefully, Sofiya at this point should begin to recover spontaneously. I would like to see her get out of bed and work on getting her bowels moving, so we can move her towards discharge perhaps in the next 24 to 48 hours. Pain seems to be well controlled. Again, I think her biggest issue at this point is getting her bowels moving regularly. I have nothing further to add and will sign Sofiya out to Dr. Ayala who will be covering over the weekend. Thank you very much for allowing me to participate in Sofiya's care. Job ID: [id number]
--- NOTE | 2021-08-08 13:37 | Hospitalist Progress Note ---
Date of Service August 08, 2021 Assessment & Plan (1) Hemoperitoneum: Plan: Hemoperitoneum as a complication of biopsy. CT a/p on 08/05 on "large heterogeneous pelvic collection with some pockets of air adjacent to the thickened sigmoid colon." Received 2 units PRBCs on 08/05. -> Hgb was 6.7 on 08/07. 2 additional units of PRBCs ordered. - Continue abx: aztreonam and Flagyl - Gen surg following: No present need for surgical intervention. - CTA a/p on 08/07 showed stable RP hematoma. Rectal exam showed no blood, so no indication of active hemorrhage. - Hgb up to 9.9 on 08/08. Low likelihood of any further bleeding. Will work with PT/OT to start moving and improving functional status. (2) Bowel perforation: Plan: Antibiotics as above, management and surgical consult as above (3) Thrombocythemia: Plan: Diagnosed with ET. Had been on hydroxyurea, but had to stop due to anemia. No acute management, patient undergoing oncologic work-up as outpatient with biopsy as noted above. Aspirin held for acute bleeding (4) Peripheral neuropathy: Plan: Improved at time of assessment. Follow clinically (5) Multinodular goiter: Plan: No acute management (6) Fibromyalgia: Plan: Pain control as needed, balance pain control against hypotension with above Oral meds held in the setting of hemoperitoneum and treatment as above (7) Hyperlipidemia: Plan: Continue Pravachol (8) Depression with anxiety: Plan: Continue BuSpar and diazepam Plan: DVT prophylaxis: SCDs, pharmacal prophylaxis contraindicated in the setting of bleeding Admission and Anticipated Discharge Date Admission Date: August 05, 2021 Subjective Better today. Improved abdominal pain. Reports no fevers/chills, chest pain, shortness of breath, nausea, or vomiting. Physical Exam Constitutional: WD/WN, vitals as above Eyes: EOM intact bilaterally; no conjunctival abnormality ENMT: external ear and nose normal, oropharynx normal Neck: trachea midline, no thyromegaly normal visual inspection Respiratory: normal respiratory effort, lungs clear to auscultation no respiratory distress Cardiovascular: RRR, no murmur, no edema Gastrointestinal (Abdomen): Inspection/Auscultation: abdomen normal to inspection; abdomen not distended Musculoskeletal: no cyanosis or clubbing, extremities motor strength 5/5 Skin: no rashes, warm and dry Neurologic: moves all extremities and awake Psychiatric: Orientation: alert, oriented to person and cooperative Results & Data Results & Data ([facility]) Vital Signs (Past 12 Hours) Vital Signs Temp Pulse Pulse Resp BP Pulse Ox 08/08/21 11:56 37.0 C 64 20 141/74 H 97 08/08/21 08:00 88 08/08/21 07:56 36.7 C 94 H 22 151/81 H 95 08/08/21 05:36 20 97 08/08/21 03:20 37.2 C 97 H 18 145/77 H 94 PG Care Time/CCT Total # of Minutes Spent Total Time Spent with Patient: Total time spent is greater than 50% in coordination of care (as documented) at patient's floor/unit and/or counseling patient: Coding Level of Care Code 72704 Subseq Hosp Care Lvl 2 Diagnoses Hemoperitoneum K66.1 Bowel perforation K63.1 Thrombocythemia D75.839 Peripheral neuropathy G62.9 Multinodular goiter E04.2 Fibromyalgia M79.7 Hyperlipidemia E78.5 Depression with anxiety F41.8
[2021-08-08 15:25] LABS: Basophils # (auto) 0.01 K/uL (0-0.2); Basophils % (auto) 0.1 %; Eosinophils # (auto) 0.08 K/uL (0-0.5); Eosinophils % (auto) 0.8 %; Hematocrit (blood only) 33.1 % (37-47); Hemoglobin 10.5 g/dL (12.0-16.0); Immature Granulocytes # (auto) 0.05 K/uL (0.00-0.02); Immature Granulocytes % (auto) 0.5 %; Lymphocytes # (auto) 0.86 K/uL (1.2-3.4); Lymphocytes % (auto) 8.5 %; Mean Corpuscular Hemoglobin 29.6 pg (25-34); Mean Corpuscular Hgb Conc 31.7 g/dL (32-36); Mean Corpuscular Volume 93.2 fL (80-100); Mean Platelet Volume 11.3 fL (7.4-10.4); Monocytes # (auto) 0.84 K/uL (0.11-0.59); Monocytes % (auto) 8.3 %; Neutrophils % (auto) 81.8 %; Platelet Count 368 K/uL (130-400); RDW Coefficient of Variation 19.8 % (11.5-14.5); RDW Standard Deviation 62.6 fL (36.4-46.3); Red Blood Count 3.55 M/uL (4.2-5.4); White Blood Count 10.14 K/uL (4.8-10.8)
[2021-08-08 15:42] LABS: BUN Creatinine Ratio 25.5 (10-20); Calcium 8.5 mg/dl (8.5-10.1); Creatinine Clr Calc Pharmacy 77.4 ml/min; Est GFR (African American) 103.5 ml/min; Est GFR (Non-African American) 89.3 ml/min; Potassium 3.7 mmol/L (3.5-5.1)
[2021-08-08] MEDS: PRAVASTATIN SOD 20 MG TAB PO SCH (16:20)
[2021-08-08] MEDS: ONDANSETRON INJ 2 MG/ML 2 ML VIAL IV PRN (20:20)
[2021-08-08] MEDS: MECLIZINE 12.5 MG TAB PO PRN (20:20)
[2021-08-08] MEDS ORDERED: SODIUM CHLORIDE 0.65% NA SOLN 45 ML (OCEAN) ONE (20:37)
[2021-08-09] MEDS: metroNIDAZOLE 500 MG/100 ML BAG IV SCH ×4 (00:50→23:36)
[2021-08-09] MEDS: AZTREONAM 1,000 MG in DEXTROSE 5% 100 ML IV SCH ×3 (05:42→21:50)
[2021-08-09] MEDS: MoRPHine SULFATE 2 MG/ML CARP IV PRN ×2 (05:42→10:04)
[2021-08-09 07:18] LABS: Hematocrit (blood only) 31.9 % (37-47); Hemoglobin 10.1 g/dL (12.0-16.0); Mean Corpuscular Hemoglobin 29.6 pg (25-34); Mean Corpuscular Hgb Conc 31.7 g/dL (32-36); Mean Corpuscular Volume 93.5 fL (80-100); Mean Platelet Volume 10.8 fL (7.4-10.4); Nucleated RBC # (auto) 0.02 K/uL (0-0); Nucleated RBC % (auto) 0.3 %; Platelet Count 315 K/uL (130-400); RDW Coefficient of Variation 19.8 % (11.5-14.5); RDW Standard Deviation 62.7 fL (36.4-46.3); Red Blood Count 3.41 M/uL (4.2-5.4); White Blood Count 7.79 K/uL (4.8-10.8)
[2021-08-09 07:44] LABS: BUN Creatinine Ratio 28.4 (10-20); Calcium 8.5 mg/dl (8.5-10.1); Creatinine Clr Calc Pharmacy 90.2 ml/min; Est GFR (African American) 108.9 ml/min; Potassium 3.5 mmol/L (3.5-5.1)
[2021-08-09] MEDS: guaiFENesin 600 MG TABCR PO SCH ×2 (08:18→21:48)
[2021-08-09] MEDS: busPIRone 5 MG TAB PO SCH ×3 (08:18→21:48)
[2021-08-09] MEDS: METOPROLOL TARTRATE 25 MG TAB PO SCH (08:18)
[2021-08-09] MEDS: MECLIZINE 12.5 MG TAB PO PRN ×2 (08:19→21:47)
[2021-08-09] MEDS: POLYETHYLENE (MIRALAX) 17 GM PACK PO SCH (08:19)
[2021-08-09] MEDS: ACETAMINOPHEN 325 MG TAB PO PRN (09:01)
--- NOTE | 2021-08-09 09:39 | Surgery Progress Note ---
Date of Service August 09, 2021 Assessment & Plan (1) Hemoperitoneum: Plan: 08/09/21 She continues to improve in terms of abdominal pain today. Her hematocrit/hemoglobin is increased from yesterday. There does not appear to be any further bleeding. Increase activity as tolerated. We will continue to follow. 08/08/2021 Apparently last night the patient has CT angiogram which showed no increase in size of the intra-abdominal and retroperitoneal bleed the gas of that was initially saw around the rectum has decreased in size The patient has received total 4 units of blood her hemoglobin this morning is 9.9 The Bethea catheter still in we will remove it and increase her activity No active bleeding placement is equilibrating for blood loss The concern I had more than the hemoperitoneum blood loss was the air around the rectum and with this time showing decrease in size and no clinical evidence of sepsis we will continue observation [facility] surgeons covering the weekend 08/07/21 Patient is 2 days post procedural bleed She has had 2 units of blood her hemoglobin this morning 6.2 Her blood pressure noted her heart rates 123 At this point without any significant bleed part of the low hemoglobin may be secondary to the fluid resuscitation which by tomorrow should start mobilizing fluids With benefits for another unit of blood at this time We will increase her diet 08/06/2021 The patient has received 2 units of blood and her hemoglobin was 8.2 at 2 AM Repeat hemoglobin is pending Her blood pressure is expected improved with transfusion Her heart rate is still slightly elevated at 107 this morning At this point we will continue watching her in ICU for 24 hours follow her H&H Since she has no further nausea we can start on some liquids this morning At this point I see no reason to reimage her since clinically she appears to be improved I reviewed the CAT scan with the radiologist extension service specialist who stated that he did not personally do the procedure but talked to the person that that and felt that and not amount of bleeding when biopsy needle was removed Reviewed the CAT scan image the patient does have some blood around the liver which would make an intraperitoneal does have what appears to be some air either in the rectal wall or just outside the rectum and a large pelvic hematoma ER physician performed a rectal exam there was no blood in the rectum Admission and Anticipated Discharge Date Admission Date: August 05, 2021 Subjective Feeling better today. Does still have some abdominal tenderness, however it is improved. Denies nausea. Denies fevers. Physical Exam Constitutional: WD/WN, vitals as above Gastrointestinal (Abdomen): Inspection/Auscultation: abdomen normal to inspection; abdomen not distended Percussion/Palpation: + abdomen tender (Mild generalized tenderness) and abdomen soft; no guarding and abdomen not rigid Musculoskeletal: Extremities: no cyanosis and no clubbing Skin: no rashes, warm and dry Psychiatric: A+Ox3, euthymic affect Results & Data ([facility]) Vital Signs (Past 12 Hours) Vital Signs Temp Pulse Pulse Resp BP Pulse Ox 08/09/21 07:56 37.3 C 92 H 18 147/76 H 96 08/09/21 07:44 92 H 18 147/75 H 96 08/08/21 22:22 37.1 C 101 H 18 145/75 H 91 Laboratory Results 08/09/21 08/09/21 08/08/21 Range/Units 07:02 07:02 15:09 WBC 7.79 (4.8-10.8) K/uL RBC 3.41 L (4.2-5.4) M/uL Hgb 10.1 L (12.0-16.0) g/dL Hct 31.9 L (37-47) % MCV 93.5 (80-100) fL MCH 29.6 (25-34) pg MCHC 31.7 L (32-36) g/dL RDW Std Deviation 62.7 H (36.4-46.3) fL RDW Coeff of Kyree 19.8 H (11.5-14.5) % Plt Count 315 (130-400) K/uL MPV 10.8 H (7.4-10.4) fL Immature Gran % (Auto) % Neut % (Auto) % Lymph % (Auto) % [place] % (Auto) % Eos % (Auto) % Baso % (Auto) % Neut # (Auto) (1.4-6.5) K/uL Lymph # (Auto) (1.2-3.4) K/uL [place] # (Auto) (0.11-0.59) K/uL Eos # (Auto) (0-0.5) K/uL Baso # (Auto) (0-0.2) K/uL Immature Gran # (Auto) (0.00-0.02) K/uL Absolute Nucleated RBC 0.02 H (0-0) K/uL Nucleated RBC % (auto) 0.3 % Sodium 135 L 136 (136-145) mmol/L Potassium 3.5 3.7 (3.5-5.1) mmol/L Chloride 102 104 (98-107) mmol/L Carbon Dioxide 28 28 (21-32) mmol/L Anion Gap 6.0 4.0 (3-11) BUN 14 14 (7-18) mg/dl Creatinine 0.48 L 0.56 L (0.6-1.2) mg/dl Est Cr Clr Drug Dosing 90.2 77.4 ml/min Est GFR ( Amer) 108.9 103.5 ml/min Est GFR (Non-Af Amer) 94.0 89.3 ml/min BUN/Creatinine Ratio 28.4 H 25.5 H (10-20) Glucose 122 H 128 H (70-99) mg/dl Calcium 8.5 8.5 (8.5-10.1) mg/dl 08/08/21 Range/Units 15:09 WBC 10.14 (4.8-10.8) K/uL RBC 3.55 L (4.2-5.4) M/uL Hgb 10.5 L (12.0-16.0) g/dL Hct 33.1 L (37-47) % MCV 93.2 (80-100) fL MCH 29.6 (25-34) pg MCHC 31.7 L (32-36) g/dL RDW Std Deviation 62.6 H (36.4-46.3) fL RDW Coeff of Kyree 19.8 H (11.5-14.5) % Plt Count 368 (130-400) K/uL MPV 11.3 H (7.4-10.4) fL Immature Gran % (Auto) 0.5 % Neut % (Auto) 81.8 % Lymph % (Auto) 8.5 % [place] % (Auto) 8.3 % Eos % (Auto) 0.8 % Baso % (Auto) 0.1 % Neut # (Auto) 8.30 H (1.4-6.5) K/uL Lymph # (Auto) 0.86 L (1.2-3.4) K/uL [place] # (Auto) 0.84 H (0.11-0.59) K/uL Eos # (Auto) 0.08 (0-0.5) K/uL Baso # (Auto) 0.01 (0-0.2) K/uL Immature Gran # (Auto) 0.05 H (0.00-0.02) K/uL Absolute Nucleated RBC (0-0) K/uL Nucleated RBC % (auto) % Sodium (136-145) mmol/L Potassium (3.5-5.1) mmol/L Chloride (98-107) mmol/L Carbon Dioxide (21-32) mmol/L Anion Gap (3-11) BUN (7-18) mg/dl Creatinine (0.6-1.2) mg/dl Est Cr Clr Drug Dosing ml/min Est GFR ( Amer) ml/min Est GFR (Non-Af Amer) ml/min BUN/Creatinine Ratio (10-20) Glucose (70-99) mg/dl Calcium (8.5-10.1) mg/dl
[2021-08-09] MEDS: FAMOTIDINE 20 MG TAB PO SCH ×2 (10:36→21:48)
--- NOTE | 2021-08-09 11:38 | Hospitalist Progress Note ---
Date of Service August 09, 2021 Assessment & Plan (1) Hemoperitoneum: Plan: Hemoperitoneum as a complication of biopsy. CT a/p on 08/05 on "large heterogeneous pelvic collection with some pockets of air adjacent to the thickened sigmoid colon." Received 2 units PRBCs on 08/05. -> Hgb was 6.7 on 08/07. 2 additional units of PRBCs ordered. - Continue abx: aztreonam and Flagyl - Gen surg following: No present need for surgical intervention. - CTA a/p on 08/07 showed stable RP hematoma. Rectal exam showed no blood, so no indication of active hemorrhage. - Hgb up to 10.1 on 08/09. Working with PT/OT to start moving and improving functional status. Really encouraged her to get up and out of bed today. She is self-limiting due to pain, but I did tell her this will not improve in a short duration, and she must manage the pain with activity. (2) Bowel perforation: Plan: Antibiotics as above, management and surgical consult as above - Some constipation today. She will continue the Miralax. Add senna today to improve motility. (3) Thrombocythemia: Plan: Diagnosed with ET. Had been on hydroxyurea, but had to stop due to anemia. No acute management, patient undergoing oncologic work-up as outpatient with biopsy as noted above. Aspirin held for acute bleeding (4) Peripheral neuropathy: Plan: Improved at time of assessment. Follow clinically (5) Multinodular goiter: Plan: No acute management (6) Fibromyalgia: Plan: Continue home meds (7) Hyperlipidemia: Plan: Continue Pravachol (8) Depression with anxiety: Plan: Continue BuSpar and diazepam Plan: DVT prophylaxis: SCDs, pharmacal prophylaxis contraindicated in the setting of bleeding - Strongly encouraging ambulation Admission and Anticipated Discharge Date Admission Date: August 05, 2021 Subjective Doing some better today. Abdominal pain has improved. She still reports that she is dizzy when she stands up. Physical Exam Constitutional: WD/WN, vitals as above Eyes: EOM intact bilaterally; no conjunctival abnormality ENMT: external ear and nose normal, oropharynx normal Neck: trachea midline, no thyromegaly normal visual inspection Respiratory: normal respiratory effort, lungs clear to auscultation no respiratory distress Cardiovascular: RRR, no murmur, no edema Gastrointestinal (Abdomen): Inspection/Auscultation: abdomen normal to inspection; abdomen not distended Musculoskeletal: no cyanosis or clubbing, extremities motor strength 5/5 Skin: no rashes, warm and dry Neurologic: moves all extremities and awake Psychiatric: Orientation: alert, oriented to person and cooperative Results & Data Results & Data ([facility]) Vital Signs (Past 12 Hours) Vital Signs Temp Pulse Resp BP Pulse Ox 08/09/21 07:56 37.3 C 92 H 18 147/76 H 96 08/09/21 07:44 92 H 18 147/75 H 96 PG Care Time/CCT Total # of Minutes Spent Total Time Spent with Patient: Total time spent is greater than 50% in coordination of care (as documented) at patient's floor/unit and/or counseling patient: Coding Level of Care Code 72924 Subseq Hosp Care Lvl 2 Diagnoses Hemoperitoneum K66.1 Bowel perforation K63.1 Thrombocythemia D75.839 Peripheral neuropathy G62.9 Multinodular goiter E04.2 Fibromyalgia M79.7 Hyperlipidemia E78.5 Depression with anxiety F41.8
[2021-08-09] MEDS: SENNA 8.6 MG TAB PO SCH (12:13)
[2021-08-09] MEDS: PRAVASTATIN SOD 20 MG TAB PO SCH (16:00)
[2021-08-09] MEDS: traMADol HCL 50 MG TABLET PO PRN ×2 (16:06→22:41)
[2021-08-10] MEDS: AZTREONAM 1,000 MG in DEXTROSE 5% 100 ML IV SCH ×3 (05:28→21:22)
[2021-08-10 06:51] LABS: Hematocrit (blood only) 32.9 % (37-47); Hemoglobin 10.3 g/dL (12.0-16.0); Mean Corpuscular Hemoglobin 29.7 pg (25-34); Mean Corpuscular Hgb Conc 31.3 g/dL (32-36); Mean Corpuscular Volume 94.8 fL (80-100); Mean Platelet Volume 11.1 fL (7.4-10.4); Platelet Count 323 K/uL (130-400); Platelet Estimate Normal (Normal); RDW Coefficient of Variation 19.9 % (11.5-14.5); RDW Standard Deviation 62.7 fL (36.4-46.3); Red Blood Count 3.47 M/uL (4.2-5.4)
[2021-08-10] MEDS: traMADol HCL 50 MG TABLET PO PRN ×4 (08:13→21:22)
[2021-08-10] MEDS: metroNIDAZOLE 500 MG/100 ML BAG IV SCH ×3 (08:13→22:36)
[2021-08-10] MEDS: SENNA 8.6 MG TAB PO SCH (08:14)
[2021-08-10] MEDS: POLYETHYLENE (MIRALAX) 17 GM PACK PO SCH (08:14)
[2021-08-10] MEDS: METOPROLOL TARTRATE 25 MG TAB PO SCH (08:14)
[2021-08-10] MEDS: guaiFENesin 600 MG TABCR PO SCH ×2 (08:14→20:37)
[2021-08-10] MEDS: FAMOTIDINE 20 MG TAB PO SCH ×2 (08:14→20:37)
[2021-08-10] MEDS: busPIRone 5 MG TAB PO SCH ×3 (08:14→20:36)
[2021-08-10] MEDS: MECLIZINE 12.5 MG TAB PO PRN ×2 (11:23→19:26)
--- NOTE | 2021-08-10 11:32 | Surgery Progress Note ---
Date of Service August 10, 2021 Assessment & Plan (1) Hemoperitoneum: Plan: 08/10/2021 Continues slow improvement, however still has some abdominal pain. Hematocrit and hemoglobin stable at . Continue to monitor. Continue to advance activity. 08/09/21 She continues to improve in terms of abdominal pain today. Her hematocrit/hemoglobin is increased from yesterday. There does not appear to be any further bleeding. Increase activity as tolerated. We will continue to follow. 08/08/2021 Apparently last night the patient has CT angiogram which showed no increase in size of the intra-abdominal and retroperitoneal bleed the gas of that was initially saw around the rectum has decreased in size The patient has received total 4 units of blood her hemoglobin this morning is 9.9 The Bethea catheter still in we will remove it and increase her activity No active bleeding placement is equilibrating for blood loss The concern I had more than the hemoperitoneum blood loss was the air around the rectum and with this time showing decrease in size and no clinical evidence of sepsis we will continue observation [facility] surgeons covering the weekend 08/07/21 Patient is 2 days post procedural bleed She has had 2 units of blood her hemoglobin this morning 6.2 Her blood pressure noted her heart rates 123 At this point without any significant bleed part of the low hemoglobin may be secondary to the fluid resuscitation which by tomorrow should start mobilizing fluids With benefits for another unit of blood at this time We will increase her diet 08/06/2021 The patient has received 2 units of blood and her hemoglobin was 8.2 at 2 AM Repeat hemoglobin is pending Her blood pressure is expected improved with transfusion Her heart rate is still slightly elevated at 107 this morning At this point we will continue watching her in ICU for 24 hours follow her H&H Since she has no further nausea we can start on some liquids this morning At this point I see no reason to reimage her since clinically she appears to be improved I reviewed the CAT scan with the radiologist flatbed press operator who stated that he did not personally do the procedure but talked to the person that that and felt that and not amount of bleeding when biopsy needle was removed Reviewed the CAT scan image the patient does have some blood around the liver which would make an intraperitoneal does have what appears to be some air either in the rectal wall or just outside the rectum and a large pelvic hematoma ER physician performed a rectal exam there was no blood in the rectum Admission and Anticipated Discharge Date Admission Date: August 05, 2021 Subjective Continues to slowly improve. Still has some lower abdominal pain, however she states it is improved. Denies nausea or vomiting. White blood cell count is normal. No fevers or chills. Physical Exam Constitutional: WD/WN, vitals as above Gastrointestinal (Abdomen): Inspection/Auscultation: abdomen normal to inspection; abdomen not distended Percussion/Palpation: + abdomen tender (Mild generalized tenderness) and abdomen soft; no guarding and abdomen not rigid Skin: no rashes, warm and dry Psychiatric: A+Ox3, euthymic affect Results & Data ([facility]) Vital Signs (Past 12 Hours) Vital Signs Temp Pulse Resp BP Pulse Ox 08/10/21 08:24 36.7 C 101 H 18 146/74 H 91 Laboratory Results 08/10/21 Range/Units 05:44 WBC 8.20 (4.8-10.8) K/uL RBC 3.47 L (4.2-5.4) M/uL Hgb 10.3 L (12.0-16.0) g/dL Hct 32.9 L (37-47) % MCV 94.8 (80-100) fL MCH 29.7 (25-34) pg MCHC 31.3 L (32-36) g/dL RDW Std Deviation 62.7 H (36.4-46.3) fL RDW Coeff of Kyree 19.9 H (11.5-14.5) % Plt Count 323 (130-400) K/uL MPV 11.1 H (7.4-10.4) fL Platelet Estimate Normal (Normal)
[2021-08-10] MEDS ORDERED: GLYCERIN ADULT 12 SUPP/BOX SUPP PR ONE (13:19)
--- NOTE | 2021-08-10 13:26 | Hospitalist Progress Note ---
Date of Service August 10, 2021 Assessment & Plan (1) Hemoperitoneum: Plan: Hemoperitoneum as a complication of biopsy. CT a/p on 08/05 on "large heterogeneous pelvic collection with some pockets of air adjacent to the thickened sigmoid colon." Received 2 units PRBCs on 08/05. -> Hgb was 6.7 on 08/07. 2 additional units of PRBCs ordered. - Continue abx: aztreonam and Flagyl -> Not clear how long a course to give. Could likely stop soon as she has no signs/symptoms of infection. - Gen surg following: No present need for surgical intervention. - CTA a/p on 08/07 showed stable RP hematoma. Rectal exam showed no blood, so no indication of active hemorrhage. - Hgb up to 10.3 on 08/10. Working with PT/OT to start moving and improving functional status. Really encouraged her to get up and move. She is doing better today and has been in a chair throughout the morning. (2) Urinary retention: Plan: Patient required straight cath x 3 on 08/09 & 08/10. Suspect mechanical obstruction from hematoma. - Bethea cath ordered. Will likely discharge with Bethea in place and urology f/u in 1-2 weeks for voiding trial. (3) Bowel perforation: Plan: Antibiotics as above, management and surgical consult as above - Some constipation today. Continue Miralax and senna. - Ordered glycerin suppository x 1 today. Avoiding enema given it could increase bowel pressure and want to avoid that after the perforation. (4) Thrombocythemia: Plan: Diagnosed with ET. Had been on hydroxyurea, but had to stop due to anemia. No acute management, patient undergoing oncologic work-up as outpatient with biopsy as noted above. Aspirin held for acute bleeding (5) Peripheral neuropathy: Plan: Improved at time of assessment. Follow clinically (6) Multinodular goiter: Plan: No acute management (7) Fibromyalgia: Plan: Continue home meds (8) Hyperlipidemia: Plan: Continue Pravachol (9) Depression with anxiety: Plan: Continue BuSpar and diazepam Plan: DVT prophylaxis: SCDs, pharmacal prophylaxis contraindicated in the setting of bleeding - Strongly encouraging ambulation Admission and Anticipated Discharge Date Admission Date: August 05, 2021 Subjective Stomach pain today and urinary retention sensation. Appetite is weak, but she does report she is trying to eat. Has been out of bed and in a chair some today. Reports no fevers/chills, chest pain, shortness of breath, nausea, or vomiting. Physical Exam Constitutional: WD/WN, vitals as above Eyes: EOM intact bilaterally; no conjunctival abnormality ENMT: external ear and nose normal, oropharynx normal Neck: trachea midline, no thyromegaly normal visual inspection Respiratory: normal respiratory effort, lungs clear to auscultation no respiratory distress Cardiovascular: RRR, no murmur, no edema Gastrointestinal (Abdomen): Inspection/Auscultation: abdomen normal to inspection; abdomen not distended Musculoskeletal: no cyanosis or clubbing, extremities motor strength 5/5 Skin: no rashes, warm and dry + ecchymosis (On bilateral buttocks) Neurologic: moves all extremities and awake Psychiatric: Orientation: alert, oriented to person and cooperative Results & Data Results & Data ([facility]) Vital Signs (Past 12 Hours) Vital Signs Temp Pulse Resp BP Pulse Ox 08/10/21 08:24 36.7 C 101 H 18 146/74 H 91 PG Care Time/CCT Total # of Minutes Spent Total Time Spent with Patient: Total time spent is greater than 50% in coordination of care (as documented) at patient's floor/unit and/or counseling patient: Coding Level of Care Code 14980 Subseq Hosp Care Lvl 3 Diagnoses Hemoperitoneum K66.1 Bowel perforation K63.1 Thrombocythemia D75.839 Peripheral neuropathy G62.9 Multinodular goiter E04.2 Fibromyalgia M79.7 Hyperlipidemia E78.5 Depression with anxiety F41.8 Urinary retention R33.9
[2021-08-10] MEDS: PRAVASTATIN SOD 20 MG TAB PO SCH (16:21)
[2021-08-11] MEDS: ACETAMINOPHEN 325 MG TAB PO PRN ×2 (02:26→09:54)
[2021-08-11 06:06] LABS: Hematocrit (blood only) 33.9 % (37-47); Hemoglobin 10.7 g/dL (12.0-16.0); Mean Corpuscular Hemoglobin 29.9 pg (25-34); Mean Corpuscular Hgb Conc 31.6 g/dL (32-36); Mean Corpuscular Volume 94.7 fL (80-100); Mean Platelet Volume 10.2 fL (7.4-10.4); Platelet Count 278 K/uL (130-400); RDW Coefficient of Variation 19.5 % (11.5-14.5); Red Blood Count 3.58 M/uL (4.2-5.4); White Blood Count 7.77 K/uL (4.8-10.8)
[2021-08-11] MEDS: AZTREONAM 1,000 MG in DEXTROSE 5% 100 ML IV SCH ×3 (06:07→20:49)
[2021-08-11] MEDS: traMADol HCL 50 MG TABLET PO PRN ×2 (07:09→19:58)
[2021-08-11] MEDS: metroNIDAZOLE 500 MG/100 ML BAG IV SCH ×2 (08:12→17:03)
[2021-08-11] MEDS: busPIRone 5 MG TAB PO SCH ×3 (08:15→20:00)
[2021-08-11] MEDS: guaiFENesin 600 MG TABCR PO SCH ×2 (08:16→20:02)
[2021-08-11] MEDS: FAMOTIDINE 20 MG TAB PO SCH ×2 (08:16→20:01)
[2021-08-11] MEDS: METOPROLOL TARTRATE 25 MG TAB PO SCH (08:17)
[2021-08-11] MEDS: SENNA 8.6 MG TAB PO SCH ×2 (08:18→20:03)
[2021-08-11] MEDS: POLYETHYLENE (MIRALAX) 17 GM PACK PO SCH (08:19)
[2021-08-11] MEDS: MECLIZINE 12.5 MG TAB PO PRN ×2 (08:33→19:35)
--- NOTE | 2021-08-11 08:34 | Progress Notes ---
HEMATOLOGY PROGRESS NOTE DATE OF SERVICE: 08/11/2021 DIAGNOSES: 1. Hemoperitoneum. 2. Urinary retention. 3. Essential thrombocythemia. 4. Anemia attributable to bone marrow biopsy and aspiration. 5. Fibromyalgia. 6. Depression/anxiety. SUBJECTIVE: Sofiya was seen and examined at bedside. Her main issue is that of lower abdominal pain, I suspect, attributable to a residual hematoma. Advised Sofiya that hematoma will take quite some ti me for the body to absorb and therefore may be irritating to her bowel moving forward. Also spoke to Dr. Cagle about perhaps reimaging her just to document progress. Based on her blood counts, she mayfield s not required transfusional support in several days. I would like to see Sfoiya get out of bed a bit more as well. Otherwise, tolerating her diet. She did move her bowels sparsely over the weekend. Sofiya reported that she has received 4 units of packed RBCs mostly during the acute phase of hospital ization, but clearly is doing much better and remained hemodynamically stable. OBJECTIVE: GENERAL: Very pleasant 76-year-old female, awake, alert, appropriate, in no acute distress. VITAL SIGNS: Temperature 36.9, pulse 93, respiratory rate 14, blood pressure 142/74. SKIN: Without rash or lesion. HEENT: Oral mucosa without erythema or ulceration. HEART: Regular rate and rhythm. LUNGS: Clear to auscultation bilaterally. ABDOMEN: Again, some palpable tenderness around the umbilicus. No rigidity or guarding. EXTREMITIES: No clubbing, cyanosis or edema. NEUROLOGIC: Grossly intact. LABORATORY DATA: WBC count 7770, hemoglobin 10.7, platelet count 278,000. IMPRESSION: 1. Hemoperitoneum. 2. Abdominal bleeding attributable to bone marrow biopsy and aspiration. 3. Essential thrombocythemia. 4. Fibromyalgia. 5. Depression/anxiety. PLAN: Sofiya is now on hospital day #6. She really has not gotten out of bed other than to go to the bathroom with some assistance. Would like physical therapy to work with her a bit more to get her m oving. Really from a hemodynamic standpoint, I am not really sure why she needs to remain hospitaliz ed, perhaps she could go to a step down closer to her home in [place]. Her hemoglobin has been stabl e for the past several days. I would advocate updating her CT scan to document progress. I would li ke her to remain off Hydrea. Her platelet count through dilution has been well controlled, presently at 278,000. That said, we will continue to follow her periodically during hospitalization. Flora soto and concerns were addressed this morning at bedside. Job ID: [id number]
--- NOTE | 2021-08-11 08:37 | Surgery Progress Note ---
Date of Service August 11, 2021 Assessment & Plan (1) Acute hemorrhage: Plan: seen with Dr. Cabrera H&H, WBC stable improving but awaiting BM getting Senna/miralax will check KUB Admission and Anticipated Discharge Date Admission Date: August 05, 2021 Subjective Tylenol/Ultram for some mild pain, tolerating diet, no BM, not OOB much, re- cathed for retention Physical Exam Gastrointestinal (Abdomen): Inspection/Auscultation: abdomen normal to inspection Percussion/Palpation: + abdomen tender (minimal) and abdomen soft Results & Data ([facility]) Vital Signs (Past 12 Hours) Vital Signs Temp Pulse Resp BP Pulse Ox 08/10/21 22:35 36.9 C 93 H 14 142/74 H 92 PG Care Time/CCT Total # of Minutes Spent Total Time Spent with Patient: Total time spent is greater than 50% in coordination of care (as documented) at patient's floor/unit and/or counseling patient: Coding Level of Care Code 51082 Subseq Hosp Care Lvl 1 Diagnoses Acute hemorrhage R58
--- NOTE | 2021-08-11 09:48 | XRay Report ---
KUB HISTORY: Presacral hematoma. Generalized abdominal pain. COMPARISON: Abdomen and pelvis CTA 07/30/2021. FINDINGS: Moderate well-formed stool within the colon. No evidence for bowel obstruction. Trace extra luminal gas within the deep pelvis seen on the prior CT examination is not clearly identified by this modality. No renal calculi. No ureteral calculi. No pneumoperitoneum or pneumatosis. IMPRESSION: 1. Moderate well-formed stool within the colon. No evidence for bowel obstruction. 2. The patient's known presacral hematoma and trace extraluminal gas is not well evaluated by this mo dality. ACT 112: Negative or not required by law. Electronically signed by: Devaughn Nicolsa M.D. 08/11/2021 9:47 AM
--- NOTE | 2021-08-11 16:21 | Hospitalist Progress Note ---
Date of Service August 11, 2021 Assessment & Plan (1) Hemoperitoneum: Plan: Hemoperitoneum and retroperitoneal hemorrhage as a complication of biopsy. CT a/p on 08/05 on "large heterogeneous pelvic collection with some pockets of air adjacent to the thickened sigmoid colon." Received 2 units PRBCs on 08/05. -> Hgb was 6.7 on 08/07. 2 additional units of PRBCs ordered. Hgb up today from previous at 10.7 so it seems the bleeding has stopped -still dealing with pain control-increase Tylenol to 1000mg po tid prn and dc tramadol as caused dizziness -work on bowel regimen - Continue abx: aztreonam and Flagyl -> Not clear how long a course to give. Could likely stop soon as she has no signs/symptoms of infection. - Gen surg following: No present need for surgical intervention.Checked KUB today-no obstruction - CTA a/p on 08/07 showed stable RP hematoma. Rectal exam showed no blood, so no indication of active hemorrhage. - Working with PT/OT to start moving and improving functional status. Really encouraged her to get up and move. She is doing better today and has been in a chair again throughout the morning. (2) Urinary retention: Plan: Patient required straight cath x 3 on 08/09 & 08/10. Suspect mechanical obstruction from hematoma. - Bethea cath ordered and placed on 08/10. -may need to discharge with Bethea in place and urology f/u in 1-2 weeks for voiding trial vs trying to remove after bowels move and pain better controlled which may be causing retention (3) Bowel perforation: Plan: Antibiotics as above, management and surgical consult as above - Some constipation continues today. Continue Miralax and increase senna to bid . - Avoiding enema given it could increase bowel pressure and want to avoid that after the perforation. (4) Thrombocythemia: Plan: Diagnosed with ET. Had been on hydroxyurea, but had to stop due to anemia. No acute management, patient undergoing oncologic work-up as outpatient with biopsy as noted above. Aspirin held for acute bleeding (5) Peripheral neuropathy: Plan: Improved at time of assessment. Follow clinically (6) Multinodular goiter: Plan: No acute management (7) Fibromyalgia: Plan: Continue home meds (8) Hyperlipidemia: Plan: Continue Pravachol (9) Depression with anxiety: Plan: Continue BuSpar and diazepam (10) Anemia: Plan: acute blood loss anemia secondary to hemorrhage as above transfused, hgb improving follow CBC in AM Plan: DVT prophylaxis: SCDs, pharmacal prophylaxis contraindicated in the setting of bleeding - Strongly encouraging ambulation, PT/OT Dispo-continued stay Admission and Anticipated Discharge Date Admission Date: August 05, 2021 Subjective Pt has pain in lower back and lower abdomen, somewhat relieved with tylenol today.Tramadol made her dizzy. SHe was able to walk a short distance today in her room as per nursing. Appetite still low. Results & Data Results & Data ([facility]) Vital Signs (Past 12 Hours) Vital Signs Temp Pulse Resp BP Pulse Ox 08/11/21 08:00 36.8 C 85 16 135/75 94 PG Care Time/CCT Total # of Minutes Spent Total Time Spent with Patient: Total time spent is greater than 50% in coordination of care (as documented) at patient's floor/unit and/or counseling patient: Coding Level of Care Code 72108 Subseq Hosp Care Lvl 2 Diagnoses Hemoperitoneum K66.1 Urinary retention R33.9 Bowel perforation K63.1 Thrombocythemia D75.839 Peripheral neuropathy G62.9 Multinodular goiter E04.2 Fibromyalgia M79.7 Hyperlipidemia E78.5 Depression with anxiety F41.8 Anemia D64.9
[2021-08-11] MEDS: PRAVASTATIN SOD 20 MG TAB PO SCH (17:04)
[2021-08-11] MEDS: ACETAMINOPHEN 500 MG TAB PO PRN (17:09)
[2021-08-12] MEDS: metroNIDAZOLE 500 MG/100 ML BAG IV SCH ×2 (00:08→08:29)
[2021-08-12] MEDS: traMADol HCL 50 MG TABLET PO PRN ×3 (02:23→18:42)
[2021-08-12] MEDS: ONDANSETRON INJ 2 MG/ML 2 ML VIAL IV PRN (02:59)
[2021-08-12] MEDS: AZTREONAM 1,000 MG in DEXTROSE 5% 100 ML IV SCH ×3 (05:49→21:53)
[2021-08-12 06:30] LABS: Basophils # (auto) 0.02 K/uL (0-0.2); Basophils % (auto) 0.2 %; Eosinophils # (auto) 0.19 K/uL (0-0.5); Eosinophils % (auto) 2.2 %; Hematocrit (blood only) 34.1 % (37-47); Hemoglobin 10.7 g/dL (12.0-16.0); Immature Granulocytes # (auto) 0.09 K/uL (0.00-0.02); Immature Granulocytes % (auto) 1.1 %; Lymphocytes # (auto) 0.68 K/uL (1.2-3.4); Mean Corpuscular Hemoglobin 29.6 pg (25-34); Mean Corpuscular Hgb Conc 31.4 g/dL (32-36); Mean Corpuscular Volume 94.5 fL (80-100); Mean Platelet Volume 10.6 fL (7.4-10.4); Monocytes # (auto) 0.85 K/uL (0.11-0.59); Neutrophils # (auto) 6.69 K/uL (1.4-6.5); Neutrophils % (auto) 78.5 %; Nucleated RBC # (auto) 0.02 K/uL (0-0); Nucleated RBC % (auto) 0.3 %; Platelet Count 301 K/uL (130-400); RDW Coefficient of Variation 19.7 % (11.5-14.5); RDW Standard Deviation 62.8 fL (36.4-46.3); Red Blood Count 3.61 M/uL (4.2-5.4); White Blood Count 8.52 K/uL (4.8-10.8)
[2021-08-12] MEDS: MECLIZINE 12.5 MG TAB PO PRN ×2 (06:53→18:42)
--- NOTE | 2021-08-12 07:37 | Surgery Progress Note ---
Date of Service August 12, 2021 Assessment & Plan (1) Acute hemorrhage: Plan: 08/12/21 Overall she continues to do well her hemoglobin is stable her abdominal pain is subsiding reflecting the stool load that she had on the x-ray yesterday likely evacuating a good amount of it The numbness she is experiencing in the right lateral thigh likely secondary to lateral cutaneous nerve trauma the runs along anterior aspect of the iliac bone I encouraged the patient to move around if her pain is under control from my point of view she can be discharged likely tomorrow All questions answered seen with Dr. Cabrera H&H, WBC stable improving but awaiting BM getting Senna/miralax will check KUB Admission and Anticipated Discharge Date Admission Date: August 05, 2021 Subjective Feels much better today states less abdominal discomfort has had multiple bowel movements States some numbness outside of her right upper leg Physical Exam Physical Exam: Was sleeping comfortably when I first woke in woke up easily Gastrointestinal (Abdomen): Abdomen is much softer no localized tenderness some guarding right lower quadrant Numbness she feels in the lateral aspect of her right lateral thigh Results & Data ([facility]) Vital Signs (Past 12 Hours) Vital Signs Temp Pulse Resp BP Pulse Ox 08/11/21 22:00 37.0 C 88 16 136/72 95 PG Care Time/CCT Total # of Minutes Spent Total Time Spent with Patient: Total time spent is greater than 50% in coordination of care (as documented) at patient's floor/unit and/or counseling patient: Coding Level of Care Code 26144 Subseq Hosp Care Lvl 3 Diagnoses Acute hemorrhage R58
[2021-08-12 08:12] LABS: BUN Creatinine Ratio 28.1 (10-20); Calcium 8.8 mg/dl (8.5-10.1); Creatinine Clr Calc Pharmacy 111.1 ml/min; Est GFR (African American) 116.6 ml/min; Est GFR (Non-African American) 100.6 ml/min; Potassium 3.5 mmol/L (3.5-5.1)
[2021-08-12] MEDS: FAMOTIDINE 20 MG TAB PO SCH ×2 (08:28→20:31)
[2021-08-12] MEDS: METOPROLOL TARTRATE 25 MG TAB PO SCH (08:28)
[2021-08-12] MEDS: guaiFENesin 600 MG TABCR PO SCH ×2 (08:28→20:31)
[2021-08-12] MEDS: SENNA 8.6 MG TAB PO SCH ×2 (08:28→20:31)
[2021-08-12] MEDS: busPIRone 5 MG TAB PO SCH ×3 (08:28→20:30)
[2021-08-12] MEDS: POLYETHYLENE (MIRALAX) 17 GM PACK PO SCH (09:35)
[2021-08-12] MEDS: diazePAM 2 MG TABLET PO PRN (09:40)
[2021-08-12] MEDS: ACETAMINOPHEN 500 MG TAB PO PRN ×2 (11:26→23:09)
[2021-08-12] MEDS: metroNIDAZOLE 500 MG TAB PO SCH ×2 (15:40→21:53)
[2021-08-12] MEDS: PRAVASTATIN SOD 20 MG TAB PO SCH (17:43)
--- NOTE | 2021-08-12 17:43 | Hospitalist Progress Note ---
Date of Service August 12, 2021 Assessment & Plan (1) Hemoperitoneum: Plan: Hemoperitoneum and retroperitoneal hemorrhage as a complication of biopsy. CT a/p on 08/05 on "large heterogeneous pelvic collection with some pockets of air adjacent to the thickened sigmoid colon." Received 2 units PRBCs on 08/05. -> Hgb was 6.7 on 08/07. 2 additional units of PRBCs ordered. Hgb up now and stable for several days at 10.7 so it seems the bleeding has stopped -still dealing with pain control-but this also has improved since the increase Tylenol to 1000mg po tid prn-continue tramadol despite the fact that it causes some dizziness -She is moving her bowels now which is helping improve her pain -Received abx: aztreonam and Flagyl -> can discontinue these now - Gen surg following: No present need for surgical intervention.Checked KUB 08/11-no obstruction - CTA a/p on 08/07 showed stable RP hematoma. Rectal exam showed no blood, so no indication of active hemorrhage. - Working with PT/OT to start moving and improving functional status. She is up and moving today and improved, PT/OT say that she can go home and she would like to do the start of her rehab (2) Urinary retention: Plan: Patient required straight cath x 3 on 08/09 & 08/10. Suspect mechanical obstruction from hematoma. - Bethea cath ordered and placed on 08/10. -may need to discharge with Bethea in place and urology f/u in 1-2 weeks for voiding trial vs trying to remove after bowels move and pain better controlled which may be causing retention -We will consider trial of void tomorrow (3) Bowel perforation: Plan: Question of such upon admission Surgery is following Antibiotics as above, management and surgical consult as above -Constipation now resolved -Continue Miralax and senna bid . - Avoiding enema given it could increase bowel pressure and want to avoid that after the perforation. (4) Thrombocythemia: Plan: Diagnosed with ET. Had been on hydroxyurea, but had to stop due to anemia. No acute management, patient undergoing oncologic work-up as outpatient with biopsy as noted above. Platelets are now actually a little bit on the low side Aspirin held for acute bleeding (5) Peripheral neuropathy: Plan: Improved at time of assessment. Follow clinically (6) Multinodular goiter: Plan: No acute management (7) Fibromyalgia: Plan: Continue home meds (8) Hyperlipidemia: Plan: Continue Pravachol (9) Depression with anxiety: Plan: Continue BuSpar and diazepam (10) Anemia: Plan: acute blood loss anemia secondary to hemorrhage as above transfused, hgb improving follow CBC in AM Plan: DVT prophylaxis: SCDs, pharmacal prophylaxis contraindicated in the setting of bleeding - Strongly encouraging ambulation, PT/OT Dispo-continued stay, but possibly discharged home in the next 1 to 2 days Admission and Anticipated Discharge Date Admission Date: August 05, 2021 Subjective Patient reports pain in the abdomen and lower back is improving today and she was out of bed and ambulated a bit with physical therapy. She did move her bowels twice yesterday and 1 so far today, no blood. She does not yet feel like she will be ready to go home tomorrow but has decided that she does not want to go to rehab. Denies any other issues at this time. I discussed her care with hematology Review of Systems Review of Systems: All systems reviewed & are unremarkable except as noted in HPI & below Physical Exam Constitutional: WD/WN, vitals as above Neck: trachea midline, no thyromegaly Respiratory: normal respiratory effort, lungs clear to auscultation Cardiovascular: RRR, no murmur, no edema Chest (Breasts): Chest: normal inspection of chest Gastrointestinal (Abdomen): Inspection/Auscultation: normal bowel sounds Percussion/Palpation: + abdomen tender (Mild tenderness in the lower abdomen without guarding or rebound) and abdomen soft Musculoskeletal: Extremities: extremities normal to inspection; no cyanosis and no clubbing Skin: no rashes, warm and dry Neurologic: moves all extremities and awake; no focal motor deficits Psychiatric: A+Ox3, euthymic affect Lymphatic: no lymphedema Results & Data Results & Data ([facility]) Vital Signs (Past 12 Hours) Vital Signs Temp Pulse Resp BP Pulse Ox 08/12/21 15:10 36.8 C 83 18 138/72 94 08/12/21 07:45 37.1 C 93 H 18 136/76 94 Laboratory Results 08/12/21 08/12/21 Range/Units 05:55 05:55 WBC 8.52 (4.8-10.8) K/uL RBC 3.61 L (4.2-5.4) M/uL Hgb 10.7 L (12.0-16.0) g/dL Hct 34.1 L (37-47) % MCV 94.5 (80-100) fL MCH 29.6 (25-34) pg MCHC 31.4 L (32-36) g/dL RDW Std Deviation 62.8 H (36.4-46.3) fL RDW Coeff of Kyree 19.7 H (11.5-14.5) % Plt Count 301 (130-400) K/uL MPV 10.6 H (7.4-10.4) fL Immature Gran % (Auto) 1.1 % Neut % (Auto) 78.5 % Lymph % (Auto) 8.0 % Kendall % (Auto) 10.0 % Eos % (Auto) 2.2 % Baso % (Auto) 0.2 % Neut # (Auto) 6.69 H (1.4-6.5) K/uL Lymph # (Auto) 0.68 L (1.2-3.4) K/uL Kendall # (Auto) 0.85 H (0.11-0.59) K/uL Eos # (Auto) 0.19 (0-0.5) K/uL Baso # (Auto) 0.02 (0-0.2) K/uL Immature Gran # (Auto) 0.09 H (0.00-0.02) K/uL Absolute Nucleated RBC 0.02 H (0-0) K/uL Nucleated RBC % (auto) 0.3 % Sodium 137 (136-145) mmol/L Potassium 3.5 (3.5-5.1) mmol/L Chloride 102 (98-107) mmol/L Carbon Dioxide 26 (21-32) mmol/L Anion Gap 9.0 (3-11) BUN 11 (7-18) mg/dl Creatinine 0.39 L (0.6-1.2) mg/dl Est Cr Clr Drug Dosing 111.1 ml/min Est GFR ( Amer) 116.6 ml/min Est GFR (Non-Af Amer) 100.6 ml/min BUN/Creatinine Ratio 28.1 H (10-20) Glucose 112 H (70-99) mg/dl Calcium 8.8 (8.5-10.1) mg/dl PG Care Time/CCT Total # of Minutes Spent Total Time Spent with Patient: Total time spent is greater than 50% in coordination of care (as documented) at patient's floor/unit and/or counseling patient: Coding Level of Care Code 92386 Subseq Hosp Care Lvl 2 Diagnoses Hemoperitoneum K66.1 Urinary retention R33.9 Bowel perforation K63.1 Thrombocythemia D75.839 Peripheral neuropathy G62.9 Multinodular goiter E04.2 Fibromyalgia M79.7 Hyperlipidemia E78.5 Depression with anxiety F41.8 Anemia D64.9
--- NOTE | 2021-08-13 07:02 | Surgery Progress Note ---
Date of Service August 13, 2021 Assessment & Plan (1) Acute hemorrhage: Plan: 08/13/21 I found the patient hard to read she was sleeping when I first walked in and then started complaining of abdominal pain We will repeat the lab this morning and reevaluate her later today 08/12/21 Overall she continues to do well her hemoglobin is stable her abdominal pain is subsiding reflecting the stool load that she had on the x-ray yesterday likely evacuating a good amount of it The numbness she is experiencing in the right lateral thigh likely secondary to lateral cutaneous nerve trauma the runs along anterior aspect of the iliac bone I encouraged the patient to move around if her pain is under control from my point of view she can be discharged likely tomorrow All questions answered seen with Dr. Cabrera H&H, WBC stable improving but awaiting BM getting Senna/miralax will check KUB Admission and Anticipated Discharge Date Admission Date: August 05, 2021 Subjective Patient was sleeping when I first walked in once awakened she is complaining of some abdominal pain He states that overall the pain is slightly better she has moved her bowels a few times but tolerated a diet yesterday Physical Exam Constitutional: The abdomen appears softer although she has significant lower abdominal guarding Bethea catheter is still in place Results & [facility] ([facility]) Vital Signs (Past 12 Hours) Vital Signs Temp Pulse Resp BP Pulse Ox 08/12/21 22:02 37.0 C 95 H 16 139/74 95 PG Care Time/CCT Total # of Minutes Spent Total Time Spent with Patient: Total time spent is greater than 50% in coordination of care (as documented) at patient's floor/unit and/or counseling patient: Coding Level of Care Code 03295 Subseq Hosp Care Lvl 3 Diagnoses Acute hemorrhage R58
[2021-08-13] MEDS: ACETAMINOPHEN 500 MG TAB PO PRN ×2 (07:33→16:35)
[2021-08-13] MEDS: MECLIZINE 12.5 MG TAB PO PRN ×2 (07:53→19:46)
--- NOTE | 2021-08-13 09:14 | Progress Notes ---
HEMATOLOGY PROGRESS NOTE DATE OF SERVICE: 08/13/2021 DIAGNOSES: 1. Hemoperitoneum. 2. Urinary retention. 3. Essential thrombocythemia. 4. Abdominal pain attributable to hemoperitoneum. SUBJECTIVE: Sofiya was seen and examined at bedside. She was actively moving her bowels prior to my v isit this morning. From a nutritional standpoint, she seems to be holding her own. Hemodynamically, hemoglobin has stabilized. Not unexpectedly, she continues to have some discomfort and I advised he r that she needs to begin to work through some of this, and really from a therapeutic standpoint, I d o not think she requires further hospitalization. I spoke to Dr. Cagle at length this morning regar ding her care moving forward and really want to emphasize the need for Sofiya to go for rehabilitation if she feels she is not ready to go home. When I spoke to her this morning, she is now back on the mindset that rehabilitation assignment at [facility] in [place] would probably be her best option movi ng forward. Also, I encouraged the patient regarding reabsorption of the collective blood in her abd omen. I removed the dressing from her bone marrow site. Again, she expressed some anxiety, but I ad vised her that again she needs to reengage and do some of the work to improve her overall well-being. OBJECTIVE: GENERAL: A 76-year-old female in no acute distress. VITAL SIGNS: Temperature 37, pulse 95, respiratory rate 16, blood pressure 139/74. SKIN: She has some surrounding ecchymosis around the bone marrow site, which again is not surprising . No rashes or lesions otherwise noted. HEENT: Oral mucosa without erythema or ulceration. HEART: Regular rate and rhythm. LUNGS: Clear to auscultation bilaterally. ABDOMEN: Soft, nontender, nondistended. EXTREMITIES: No clubbing, cyanosis or edema. NEUROLOGIC: Grossly intact. LABORATORY DATA: These are from 08/12; WBC 8500, hemoglobin 10.7, platelet count 301,000. Sodium 13 7, potassium 3.5, chloride 102, carbon dioxide 26, creatinine 0.39, BUN 11. IMPRESSION: 1. Hemoperitoneum. 2. Urinary retention. 3. Essential thrombocythemia. 4. Fibromyalgia. 5. Abdominal pains attributable to hemoperitoneum. PLAN: I engaged in a lengthy discussion with Sofiya regarding her clinical needs moving forward. Her hemoglobin has remained stable for the past 3 to 4 days. There is no evidence that she is hemorrhag ing further. Not unexpectedly, she continues to car with some abdominal pain, which can be managed by p.o. opioids. From a mental standpoint, Sofiya battles with anxieties and thus has expressed relu ctance on being discharged. I have no problem with her going to [facility] in [place] and certainly c udayue to follow her closely with periodic laboratories. Ultimately, I need to get her back in the office to discuss bone marrow biopsy results and make a plan for cytoreductive therapy moving forward . With the transfusions administered, dilutional effect has been helpful in controlling her platelet count at least transiently. That said, from a hematologic standpoint, she is appropriate for rehabi litation assignment. I have nothing further to add at this point and we will effectively sign off. Thank you very much for allowing me to participate in her care. Job ID: [id number]
[2021-08-13 09:19] LABS: Basophils # (auto) 0.04 K/uL (0-0.2); Basophils % (auto) 0.5 %; Eosinophils # (auto) 0.22 K/uL (0-0.5); Hematocrit (blood only) 34.2 % (37-47); Hemoglobin 10.8 g/dL (12.0-16.0); Immature Granulocytes # (auto) 0.09 K/uL (0.00-0.02); Immature Granulocytes % (auto) 1.2 %; Lymphocytes # (auto) 0.76 K/uL (1.2-3.4); Lymphocytes % (auto) 10.4 %; Mean Corpuscular Hemoglobin 29.8 pg (25-34); Mean Corpuscular Hgb Conc 31.6 g/dL (32-36); Mean Corpuscular Volume 94.5 fL (80-100); Mean Platelet Volume 11.5 fL (7.4-10.4); Monocytes # (auto) 0.52 K/uL (0.11-0.59); Monocytes % (auto) 7.1 %; Neutrophils # (auto) 5.65 K/uL (1.4-6.5); Neutrophils % (auto) 77.8 %; Platelet Count 340 K/uL (130-400); RDW Coefficient of Variation 19.9 % (11.5-14.5); RDW Standard Deviation 64.3 fL (36.4-46.3); Red Blood Count 3.62 M/uL (4.2-5.4); White Blood Count 7.28 K/uL (4.8-10.8)
[2021-08-13] MEDS: busPIRone 5 MG TAB PO SCH ×3 (09:32→19:46)
[2021-08-13] MEDS: FAMOTIDINE 20 MG TAB PO SCH ×2 (09:33→19:47)
[2021-08-13] MEDS: guaiFENesin 600 MG TABCR PO SCH ×2 (09:33→19:30)
[2021-08-13] MEDS: METOPROLOL TARTRATE 25 MG TAB PO SCH (09:34)
[2021-08-13] MEDS: SENNA 8.6 MG TAB PO SCH ×2 (09:35→19:31)
[2021-08-13] MEDS: POLYETHYLENE (MIRALAX) 17 GM PACK PO SCH (09:39)
[2021-08-13] MEDS: traMADol HCL 50 MG TABLET PO PRN ×3 (09:42→21:43)
[2021-08-13 09:45] LABS: BUN Creatinine Ratio 23.5 (10-20); Calcium 9.1 mg/dl (8.5-10.1); Creatinine Clr Calc Pharmacy 105.6 ml/min; Est GFR (African American) 114.7 ml/min; Potassium 3.5 mmol/L (3.5-5.1)
[2021-08-13] MEDS: PRAVASTATIN SOD 20 MG TAB PO SCH (16:36)
--- NOTE | 2021-08-13 17:27 | Hospitalist Progress Note ---
Date of Service August 13, 2021 Assessment & Plan (1) Hemoperitoneum: Plan: Hemoperitoneum and retroperitoneal hemorrhage as a complication of biopsy. CT a/p on 08/05 on "large heterogeneous pelvic collection with some pockets of air adjacent to the thickened sigmoid colon." Received 2 units PRBCs on 08/05. -> Hgb was 6.7 on 08/07. 2 additional units of PRBCs ordered. Hgb up now and stable for several days at 10.8 so it seems the bleeding has stopped -still dealing with pain control-only slightly improved since the increase Tylenol to 1000mg po tidand with tramadol ----> increase tramadol to 75mg po q4h prn pain -She is moving her bowels now -Received abx: aztreonam and Flagyl ->now discontinued - Gen surg following: No present need for surgical intervention.Checked KUB 08/11-no obstruction - CTA a/p on 08/07 showed stable RP hematoma. Rectal exam showed no blood, so no indication of active hemorrhage. - Working with PT/OT to start moving and improving functional status. Needs rehab placement-hopeful for tomorrow at [facility] (2) Urinary retention: Plan: Patient required straight cath x 3 on 08/09 & 08/10. Suspect mechanical obstruction from hematoma. - Bethea cath ordered and placed on 08/10. -may need to discharge with Bethea in place and urology f/u in 1-2 weeks for voiding trial vs trying to remove after bowels move and pain better controlled which may be causing retention -Will trial of void tomorrow morning (3) Bowel perforation: Plan: Question of such upon admission on imaging in/near rectum Surgery is following Antibiotics as above, management and surgical consult as above -Constipation now resolved -Continue Miralax and senna bid . - Avoiding enema given it could increase bowel pressure and want to avoid that after the perforation. (4) Thrombocythemia: Plan: Diagnosed with ET. Had been on hydroxyurea, but had to stop due to anemia. No acute management, patient undergoing oncologic work-up as outpatient with biopsy as noted above. Platelets are now actually a little bit on the low side Aspirin held for acute bleeding -continue to hold hydrea on discharge as per Oncology f/u with Heme/Onc as outpt (5) Peripheral neuropathy: Plan: Improved at time of assessment. Follow clinically (6) Multinodular goiter: Plan: No acute management (7) Fibromyalgia: Plan: Continue home meds (8) Hyperlipidemia: Plan: Continue Pravachol (9) Depression with anxiety: Plan: Continue BuSpar and diazepam (10) Anemia: Plan: acute blood loss anemia secondary to hemorrhage as above transfused, hgb improving follow CBC in AM Plan: DVT prophylaxis: SCDs, pharmacal prophylaxis contraindicated in the setting of bleeding - Strongly encouraging ambulation, PT/OT Dispo-continued stay, but plan to discharge to rehab tomorrow at [facility] Admission and Anticipated Discharge Date Admission Date: August 05, 2021 Subjective Pt continues to have pain in lower abdomen but is hesitant to take anything stronger than current tramadol. She did move her bowels multiple times today the size of "small piles." She feels a little dizzy right before each urge to defecate. She did get out of bed multiple times today to the bedside commode, but not ambulating the halls. She is agreeable to rehab now. SHe is agreeable to increasing the tramadol dose, but is worried about taking something stronger like hydrocodone Review of Systems Review of Systems: All systems reviewed & are unremarkable except as noted in HPI & below Physical Exam Constitutional: WD/WN, vitals as above Eyes: + anicteric sclerae Neck: trachea midline, no thyromegaly Respiratory: normal respiratory effort, lungs clear to auscultation Cardiovascular: RRR, no murmur, no edema Chest (Breasts): Chest: normal inspection of chest Gastrointestinal (Abdomen): Inspection/Auscultation: normal bowel sounds Percussion/Palpation: + abdomen tender (Mild tenderness in the lower abdomen without guarding or rebound) and abdomen soft Musculoskeletal: Extremities: extremities normal to inspection; no cyanosis and no clubbing Skin: no rashes, warm and dry Neurologic: moves all extremities and awake; no focal motor deficits Psychiatric: A+Ox3, euthymic affect Genitourinary: Bethea in place Lymphatic: no lymphedema Results & Data Results & Data ([facility]) Vital Signs (Past 12 Hours) Vital Signs Temp Pulse Resp BP Pulse Ox 08/13/21 15:26 37.0 C 89 18 146/75 H 95 Laboratory Results 11/03/21 11/03/21 Range/Units 08:58 08:58 WBC 7.28 (4.8-10.8) K/uL RBC 3.62 L (4.2-5.4) M/uL Hgb 10.8 L (12.0-16.0) g/dL Hct 34.2 L (37-47) % MCV 94.5 (80-100) fL MCH 29.8 (25-34) pg MCHC 31.6 L (32-36) g/dL RDW Std Deviation 64.3 H (36.4-46.3) fL RDW Coeff of Kyree 19.9 H (11.5-14.5) % Plt Count 340 (130-400) K/uL MPV 11.5 H (7.4-10.4) fL Immature Gran % (Auto) 1.2 % Neut % (Auto) 77.8 % Lymph % (Auto) 10.4 % [place] % (Auto) 7.1 % Eos % (Auto) 3.0 % Baso % (Auto) 0.5 % Neut # (Auto) 5.65 (1.4-6.5) K/uL Lymph # (Auto) 0.76 L (1.2-3.4) K/uL [place] # (Auto) 0.52 (0.11-0.59) K/uL Eos # (Auto) 0.22 (0-0.5) K/uL Baso # (Auto) 0.04 (0-0.2) K/uL Immature Gran # (Auto) 0.09 H (0.00-0.02) K/uL Sodium 137 (136-145) mmol/L Potassium 3.5 (3.5-5.1) mmol/L Chloride 102 (98-107) mmol/L Carbon Dioxide 28 (21-32) mmol/L Anion Gap 7.0 (3-11) BUN 10 (7-18) mg/dl Creatinine 0.41 L (0.6-1.2) mg/dl Est Cr Clr Drug Dosing 105.6 ml/min Est GFR ( Amer) 114.7 ml/min Est GFR (Non-Af Amer) 99.0 ml/min BUN/Creatinine Ratio 23.5 H (10-20) Glucose 124 H (70-99) mg/dl Calcium 9.1 (8.5-10.1) mg/dl PG Care Time/CCT Total # of Minutes Spent Total Time Spent with Patient: Total time spent is greater than 50% in coordination of care (as documented) at patient's floor/unit and/or counseling patient: Coding Level of Care Code 64871 Subseq Hosp Care Lvl 2 Diagnoses Hemoperitoneum K66.1 Urinary retention R33.9 Bowel perforation K63.1 Thrombocythemia D75.839 Peripheral neuropathy G62.9 Multinodular goiter E04.2 Fibromyalgia M79.7 Hyperlipidemia E78.5 Depression with anxiety F41.8 Anemia D64.9
[2021-08-14] MEDS: MECLIZINE 12.5 MG TAB PO PRN (06:06)
[2021-08-14] MEDS: ACETAMINOPHEN 500 MG TAB PO PRN ×2 (06:38→16:25)
[2021-08-14 07:41] LABS: Basophils # (auto) 0.01 K/uL (0-0.2); Basophils % (auto) 0.1 %; Eosinophils # (auto) 0.17 K/uL (0-0.5); Eosinophils % (auto) 2.5 %; Hematocrit (blood only) 33.4 % (37-47); Hemoglobin 10.7 g/dL (12.0-16.0); Immature Granulocytes # (auto) 0.02 K/uL (0.00-0.02); Immature Granulocytes % (auto) 0.3 %; Lymphocytes # (auto) 0.58 K/uL (1.2-3.4); Lymphocytes % (auto) 8.7 %; Mean Corpuscular Hemoglobin 29.9 pg (25-34); Mean Corpuscular Volume 93.3 fL (80-100); Mean Platelet Volume 9.9 fL (7.4-10.4); Neutrophils # (auto) 5.32 K/uL (1.4-6.5); Neutrophils % (auto) 79.4 %; Platelet Count 313 K/uL (130-400); RDW Coefficient of Variation 19.9 % (11.5-14.5); RDW Standard Deviation 63.1 fL (36.4-46.3); Red Blood Count 3.58 M/uL (4.2-5.4)
[2021-08-14] MEDS: FAMOTIDINE 20 MG TAB PO SCH ×2 (07:51→21:48)
[2021-08-14 08:18] LABS: BUN Creatinine Ratio 23.9 (10-20); Calcium 8.6 mg/dl (8.5-10.1); Creatinine Clr Calc Pharmacy 98.4 ml/min; Est GFR (African American) 112.1 ml/min; Est GFR (Non-African American) 96.7 ml/min; Potassium 3.7 mmol/L (3.5-5.1)
[2021-08-14] MEDS: busPIRone 5 MG TAB PO SCH ×3 (08:24→21:49)
[2021-08-14] MEDS: guaiFENesin 600 MG TABCR PO SCH ×2 (08:25→21:45)
[2021-08-14] MEDS: METOPROLOL TARTRATE 25 MG TAB PO SCH (08:25)
[2021-08-14] MEDS: SENNA 8.6 MG TAB PO SCH ×2 (08:27→21:45)
[2021-08-14] MEDS: ONDANSETRON INJ 2 MG/ML 2 ML VIAL IV PRN (10:35)
[2021-08-14] MEDS: POLYETHYLENE (MIRALAX) 17 GM PACK PO SCH (10:42)
[2021-08-14] MEDS: traMADol HCL 50 MG TABLET PO PRN ×2 (11:55→21:58)
--- NOTE | 2021-08-14 12:32 | Surgery Progress Note ---
Date of Service August 14, 2021 Assessment & Plan (1) Acute hemorrhage: Plan: H&H stable WBC normal exam benign ok for d/c from surgical perspective, continue bowel regimen Admission and Anticipated Discharge Date Admission Date: August 05, 2021 Subjective multiple BMs yesterday, tolerating diet, some mild abdominal pain for which she is still taking analgesics Physical Exam Gastrointestinal (Abdomen): Inspection/Auscultation: abdomen not distended Percussion/Palpation: + abdomen tender (mild generalized) and abdomen soft Results & Data ([facility]) Vital Signs (Past 12 Hours) Vital Signs Temp Pulse Resp BP BP Pulse Ox 08/14/21 11:41 36.8 C 77 18 147/73 H 99 08/14/21 07:40 36.6 C 92 H 20 139/71 96 PG Care Time/CCT Total # of Minutes Spent Total Time Spent with Patient: Total time spent is greater than 50% in coordination of care (as documented) at patient's floor/unit and/or counseling patient: Coding Level of Care Code 28429 Subseq Hosp Care Lvl 1 Diagnoses Acute hemorrhage R58
[2021-08-14] MEDS: PRAVASTATIN SOD 20 MG TAB PO SCH (16:25)
--- NOTE | 2021-08-14 17:32 | Hospitalist Progress Note ---
Date of Service August 14, 2021 Assessment & Plan (1) Hemoperitoneum: Plan: Hemoperitoneum and retroperitoneal hemorrhage as a complication of bone marrow biopsy. CT a/p on 08/05 on "large heterogeneous pelvic collection with some pockets of air adjacent to the thickened sigmoid colon." Received 2 units PRBCs on 08/05. -> Hgb was 6.7 on 08/07. 2 additional units of PRBCs ordered. Hgb up now and stable for many days at 10.8 so it seems the bleeding has stopped -still dealing with pain control-is somewhat improved since the increase Tylenol to 1000mg po tid and increased dose of tramadol to 75mg po q4h prn pain -She is moving her bowels now, Bethea catheter has been removed and she is voiding -Received abx: aztreonam and Flagyl ->now discontinued - Gen surg following: No present need for surgical intervention.Checked KUB 08/11-no obstruction - CTA a/p on 08/07 showed stable RP hematoma. Rectal exam showed no blood, so no indication of active hemorrhage. - Working with PT/OT to start moving and improving functional status. Needs rehab placement-hopeful for tomorrow at [facility] (2) Urinary retention: Plan: Patient required straight cath x 3 on 08/09 & 08/10. Suspect mechanical o bstruction from hematoma. - Bethea cath ordered and placed on 08/10. -Trial of void on 08/14-is voiding but asked nurse to BladderScan the patient to remake sure that she is not retaining (3) Anemia: Plan: acute blood loss anemia secondary to hemorrhage as above transfused, hgb improved and stable for many days No need to follow CBC any further at this point (4) Bowel perforation: Plan: Question of such upon admission on imaging in/near rectum Surgery is following-now signed off and she is stable Antibiotics were given and now discontinued -Constipation now resolved -Continue Miralax and senna bid . (5) Thrombocythemia: Plan: Diagnosed with ET. Had been on hydroxyurea, but had to stop due to anemia. No acute management, patient undergoing oncologic work-up as outpatient with biopsy as noted above. Platelets are now actually a little bit on the low side Aspirin held for acute bleeding -continue to hold hydrea on discharge as per Oncology f/u with Heme/Onc as outpt (6) Peripheral neuropathy: Plan: Improved at time of assessment. Follow clinically (7) Multinodular goiter: Plan: No acute management (8) Fibromyalgia: Plan: Continue home cyclobenzaprine diazepam as needed (9) Hyperlipidemia: Plan: Continue Pravachol (10) Depression with anxiety: Plan: Continue BuSpar and diazepam Plan: DVT prophylaxis: SCDs, pharmacal prophylaxis contraindicated in the setting of bleeding - Strongly encouraging ambulation, PT/OT Dispo-medically stable for discharge, awaiting acceptance at [facility]. Admission and Anticipated Discharge Date Admission Date: August 05, 2021 Subjective Patient still has complaints of lower abdominal pain. She continues to move her bowels today and. She reports that she did not get out of bed and walk around except to stand up and then sit down after a pivot to the bedside commode. She is unmotivated it seems due to pain. She does report the tramadol increased dose is slightly helping her but does still make her feel little bit strange. She is also trying to take Tylenol for pain. Denies any other complaints. Bethea catheter was removed and she is voiding when she is having small bowel movements, but bladder scan has not been performed to see if she is continuing to retain urine. Review of Systems Review of Systems: All systems reviewed & are unremarkable except as noted in HPI & below Physical Exam Constitutional: WD/WN, vitals as above Eyes: + anicteric sclerae Neck: trachea midline, no thyromegaly Respiratory: normal respiratory effort, lungs clear to auscultation Cardiovascular: RRR, no murmur, no edema Chest (Breasts): Chest: normal inspection of chest Gastrointestinal (Abdomen): Inspection/Auscultation: normal bowel sounds Percussion/Palpation: + abdomen tender (Mild tenderness in the lower abdomen without guarding or rebound) and abdomen soft Musculoskeletal: Extremities: extremities normal to inspection; no cyanosis and no clubbing Skin: no rashes, warm and dry Neurologic: moves all extremities and awake; no focal motor deficits Psychiatric: A+Ox3, euthymic affect Lymphatic: no lymphedema Results & Data Results & Data ([facility]) Vital Signs (Past 12 Hours) Vital Signs Temp Pulse Resp BP BP Pulse Ox 08/14/21 17:05 36.8 C 82 19 133/76 94 08/14/21 11:41 36.8 C 77 18 147/73 H 99 11/04/21 07:40 36.6 C 92 H 20 139/71 96 Laboratory Results 08/14/21 08/14/21 Range/Units 07:02 07:02 WBC 6.70 (4.8-10.8) K/uL RBC 3.58 L (4.2-5.4) M/uL Hgb 10.7 L (12.0-16.0) g/dL Hct 33.4 L (37-47) % MCV 93.3 (80-100) fL MCH 29.9 (25-34) pg MCHC 32.0 (32-36) g/dL RDW Std Deviation 63.1 H (36.4-46.3) fL RDW Coeff of Kyree 19.9 H (11.5-14.5) % Plt Count 313 (130-400) K/uL MPV 9.9 (7.4-10.4) fL Immature Gran % (Auto) 0.3 % Neut % (Auto) 79.4 % Lymph % (Auto) 8.7 % [place] % (Auto) 9.0 % Eos % (Auto) 2.5 % Baso % (Auto) 0.1 % Neut # (Auto) 5.32 (1.4-6.5) K/uL Lymph # (Auto) 0.58 L (1.2-3.4) K/uL [place] # (Auto) 0.60 H (0.11-0.59) K/uL Eos # (Auto) 0.17 (0-0.5) K/uL Baso # (Auto) 0.01 (0-0.2) K/uL Immature Gran # (Auto) 0.02 (0.00-0.02) K/uL Sodium 135 L (136-145) mmol/L Potassium 3.7 (3.5-5.1) mmol/L Chloride 100 (98-107) mmol/L Carbon Dioxide 30 (21-32) mmol/L Anion Gap 5.0 (3-11) BUN 11 (7-18) mg/dl Creatinine 0.44 L (0.6-1.2) mg/dl Est Cr Clr Drug Dosing 98.4 ml/min Est GFR ( Amer) 112.1 ml/min Est GFR (Non-Af Amer) 96.7 ml/min BUN/Creatinine Ratio 23.9 H (10-20) Glucose 119 H (70-99) mg/dl Calcium 8.6 (8.5-10.1) mg/dl PG Care Time/CCT Total # of Minutes Spent Total Time Spent with Patient: Total time spent is greater than 50% in coordination of care (as documented) at patient's floor/unit and/or counseling patient: Coding Level of Care Code 51224 Subseq Hosp Care Lvl 2 Diagnoses Hemoperitoneum K66.1 Urinary retention R33.9 Bowel perforation K63.1 Thrombocythemia D75.839 Peripheral neuropathy G62.9 Multinodular goiter E04.2 Fibromyalgia M79.7 Hyperlipidemia E78.5 Depression with anxiety F41.8 Anemia D64.9
[2021-08-15] MEDS: ACETAMINOPHEN 500 MG TAB PO PRN (08:23)
[2021-08-15] MEDS: METOPROLOL TARTRATE 25 MG TAB PO SCH (08:24)
[2021-08-15] MEDS: busPIRone 5 MG TAB PO SCH (08:24)
[2021-08-15] MEDS: FAMOTIDINE 20 MG TAB PO SCH (08:24)
[2021-08-15] MEDS: SENNA 8.6 MG TAB PO SCH (08:25)
--- NOTE | 2021-08-15 08:25 | Surgery Progress Note ---
Date of Service August 15, 2021 Assessment & Plan (1) Acute hemorrhage: Plan: seen with Dr. Cabrera stable for d/c, will sign off Admission and Anticipated Discharge Date Admission Date: August 05, 2021 Subjective feeling better, bowels moved, awaiting placement Physical Exam Gastrointestinal (Abdomen): Inspection/Auscultation: abdomen not distended Percussion/Palpation: + guarding and abdomen soft Results & Data ([facility]) Vital Signs (Past 12 Hours) Vital Signs Temp Pulse Resp BP Pulse Ox 08/15/21 08:01 37.2 C 75 20 154/72 H 99 08/14/21 23:35 36.8 C 78 16 125/69 97 PG Care Time/CCT Total # of Minutes Spent Total Time Spent with Patient: Total time spent is greater than 50% in coordination of care (as documented) at patient's floor/unit and/or counseling patient: Coding Level of Care Code None Diagnoses Acute hemorrhage R58
[2021-08-15] MEDS: MECLIZINE 12.5 MG TAB PO PRN (08:57)
[2021-08-15] MEDS: diazePAM 2 MG TABLET PO PRN (08:59)
--- NOTE | 2021-08-15 09:21 | Progress Notes ---
HEMATOLOGY PROGRESS NOTE DATE OF SERVICE: 08/15/2021 DIAGNOSES: 1. Hemoperitoneum. 2. Urinary retention. 3. Anemia. 4. Essential thrombocythemia. SUBJECTIVE: Sofiya was seen and examined at bedside. Reviewed hospitalist notes and obviously spoke to Sofiya directly. There were issues with transportation getting her to [facility] yesterday and hope fully she will be discharged. I plan to meet with her in the outpatient arena to review her peripher al blood counts to consider reinstitution of cytoreductive therapy and bone marrow biopsy and aspirat ion were due. She is tolerating her diet. She continues to ambulate with assistance and was able to urinate on her own today, which was a concern because of obstructive uropathy brought on by hemoperi toneum. Nursing reports no overnight difficulties. The patient remains hemodynamically stable. OBJECTIVE: GENERAL: Very pleasant 76-year-old female in no acute distress. VITAL SIGNS: Temperature 37.2, pulse 75, respiratory rate 20, blood pressure 154/72. SKIN: Without rash or lesion. HEENT: No buccal lesions or ulcerations. HEART: Regular rate and rhythm. No clicks, rubs, murmurs or gallops. LUNGS: Clear to auscultation bilaterally. ABDOMEN: Soft. She has some tenderness in the periumbilical area. EXTREMITIES: No clubbing, cyanosis or edema. NEUROLOGIC: Grossly intact. LABORATORY DATA: WBC count 6700, hemoglobin 10.7, platelet count 313,000. Sodium 135, potassium 3.7 , chloride 100, carbon dioxide 30, creatinine 0.44, BUN 11. RADIOGRAPHIC DATA: KUB performed on 08/11/2021, moderate well-formed stool within the colon and no ev idence for bowel obstruction. The patient has known presacral hematoma and tracing in her luminal ga s is not well evaluated by KUB. ASSESSMENT: 1. Hemoperitoneum. 2. Urinary retention (resolved). 3. Anemia (stable hemoglobin and hematocrit). 4. Essential thrombocythemia. PLAN: I spoke to Sofiya at length regarding plan upon discharge. Bone marrow biopsy and aspiration r esults are pending at this time. From a hemodynamic standpoint, her pressure and pulse as well as he moglobin have all remained stable over the past couple of days. I was very pleased to see she is abl e to urinate, which is encouraging. Again, I see no medical reason to keep her at [facility] any longer and hopefully we can arrange for appropriate transportation and anticipate she will remain in [facility] for no more than a week. I will plan to reconvene with her I would anticipate within a wed or so. Questions and concerns were addressed at bedside today. I will effectively sign off. Thank you very much for allowing me to participate in Sofiya's care. Job ID: [id number]
[2021-08-15] MEDS: traMADol HCL 50 MG TABLET PO PRN (11:06)
--- NOTE | 2021-08-15 13:00 | Discharge Summary ---
Date of Service August 15, 2021 Admission HPI Per Admitting Provider Kari is a 76-year-old female who presented for bone marrow biopsy at 730 this morning to assess for dysplasia 2/2 history of thrombocythemia. Following procedure patient had increased back and rectal pain with follow-up CT scan showing hemoperitoneum. Patient reports she was otherwise in her normal state of health when she presented for a biopsy this morning. Following biopsy she had increased pain, lightheadedness, dizziness and felt globally weak. She has continued to feel frail, and lightheaded since this morning. Slightly improved in the last 2 hours, but still much worse than her normal baseline. Denies nausea/vomiting at time of assessment. Denies bloody bowel movements, endorses some "brown liquid "stool movement with none since. Endorses back pain, abdominal pain which seems to be more diffuse across her whole belly this afternoon. Extensive allergies, discussed with patient. Has multiple antibiotic allergies, initially think she was allergic to steroids but notes that this was because she was given steroids at the same time she had an allergic reaction to an antibiotic. She notes that she has had steroid medications once since without any reaction. Patient believes that she potentially may have gotten steroids as a treatment for an allergic reaction rather than being allergic to the steroids himself. She reports an allergy to IV contrast dye, severe stomachache. No throat/lip swelling voice change or rash. Medical History: Reviewed. Hx of tachycardia (not afib/flutter) tx with metoprolol, otherwise no cardiac disease. Hx of esophageal cancer in remission. Pending a gallbladder evaluation for high Alk Phos. additional medical history updated. Medications: Reviewed. Took Metoprolol and diazepam this morning. Surgical History: Reviewed. 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 Allergies: Reviewed, extensive. Social History: Former smoker, none in 5 years. No EtOH, no recreational drug use. Code Status: Full Code Principal Diagnosis Hemoperitoneum and retroperitoneal hemorrhage, Acute blood loss anemia, Urinary retention Discharge Exam Constitutional WD/WN, vitals as above Eyes + anicteric sclerae Neck trachea midline, no thyromegaly Respiratory normal respiratory effort, lungs clear to auscultation Cardiovascular RRR, no murmur, no edema Chest (Breasts) Chest: normal inspection of chest Gastrointestinal (Abdomen) Inspection/Auscultation: normal bowel sounds Percussion/Palpation: + abdomen tender (Mild tenderness in the lower abdomen without guarding or rebound) and abdomen soft Musculoskeletal Extremities: extremities normal to inspection; no cyanosis and no clubbing Skin no rashes, warm and dry Neurologic moves all extremities and awake; no focal motor deficits Psychiatric A+Ox3, euthymic affect Lymphatic no lymphedema Discharge Data Allergies Allergy/AdvReac Type Severity Reaction Status Date / Time alendronate sodium Allergy Unknown unknown Verified 09/30/15 14:37 Bactrim Allergy Unknown swelling Verified 09/30/15 14:37 doxycycline Allergy Unknown anaphylaxis, Verified 09/30/15 14:37 n/v erythromycin base Allergy Unknown unknown Verified 09/30/15 14:37 glucosamine Allergy Unknown unknown Verified 09/30/15 14:37 levofloxacin Allergy Unknown n/v, Verified 09/30/15 14:37 trouble breathing pantoprazole Allergy Unknown n/v Verified 09/30/15 14:37 phenylpropanolamine Allergy Unknown unknown Verified 09/30/15 14:37 sertraline Allergy Unknown felt weird Verified 09/30/15 14:37 sulfamethoxazole [Bactrim] Allergy Unknown swelling Verified 08/05/21 11:10 trimethoprim [Bactrim] Allergy Unknown swelling Verified 08/05/21 11:10 fluconazole Allergy Unknown Unverified 08/05/21 11:10 gatifloxacin [From Tequin] Allergy Unknown Unverified 08/05/21 11:10 gentamicin Allergy Unknown Unverified 08/05/21 11:10 tobramycin Allergy Unknown Unverified 08/05/21 11:10 CENTOMYCIN Allergy Unknown unknown Uncoded 09/30/15 14:37 CHONDROITIN Allergy Unknown unknown Uncoded 09/30/15 14:37 PCN Allergy Unknown tongue Uncoded 09/30/15 14:37 swelling Consultations 08/05/21 15:34 Consult General Surgery Routine Consult Hematology Routine Consult Critical Care Registered Nurse Routine Ordered Studies 08/05/21 11:24 CT abd pelvis wo con Stat 08/07/21 07:00 CT angio abdomen pelvis w con Stat Hospital Course (1) Hemoperitoneum: Hemoperitoneum and retroperitoneal hemorrhage as a complication of bone marrow biopsy. CT a/p on 08/05 on "large heterogeneous pelvic collection with some pockets of air adjacent to the thickened sigmoid colon." Received 2 units PRBCs on 08/05. -> Hgb was 6.7 on 08/07. 2 additional units of PRBCs ordered. Hgb up now and stable for many days at 10.8 so it seems the bleeding has stopped -still dealing with pain control-is somewhat improved since the increase Tylenol to 1000mg po tid and increased dose of tramadol to 75mg po q4h prn pain -She is moving her bowels now, Bethea catheter has been removed and she is voiding -Received abx: aztreonam and Flagyl ->now discontinued - Gen surg following: No present need for surgical intervention.Checked KUB 08/11-no obstruction - CTA a/p on 08/07 showed stable RP hematoma. Rectal exam showed no blood, so no indication of active hemorrhage. - Working with PT/OT to start moving and improving functional status. Needs rehab placement for deconditioning due to prolonged hospitalization (2) Urinary retention: Patient required straight cath x 3 on 08/09 & 08/10. Suspect mechanical obstruction from hematoma. - Bethea cath ordered and placed on 08/10. -passed Trial of void on 08/14, bladder scans no > than 100mL (3) Anemia: acute blood loss anemia secondary to hemorrhage as above transfused, hgb improved and stable for many days check CBC in 3 days (4) Bowel perforation: Question of such upon admission on imaging in/near rectum Surgery is following-now signed off and she is stable Antibiotics were given and now discontinued -Constipation now resolved, moving bowels daily -Continue Miralax daily (5) Thrombocythemia: Diagnosed with ET. Had been on hydroxyurea, but had to stop due to anemia. No acute management, patient undergoing oncologic work-up as outpatient with biopsy as noted above. Platelets are now actually a little bit on the low side Aspirin held for acute bleeding -continue to hold hydrea on discharge as per Oncology f/u with Heme/Onc as outpt (6) Peripheral neuropathy: Improved at time of assessment. Follow clinically (7) Multinodular goiter: No acute management (8) Fibromyalgia: Continue home cyclobenzaprine diazepam as needed (9) Hyperlipidemia: Continue Pravachol (10) Depression with anxiety: Continue BuSpar and diazepam DVT prophylaxis: SCDs, pharmacal prophylaxis contraindicated in the setting of bleeding - Strongly encouraging ambulation, PT/OT Dispo-medically stable for discharge to [facility]. Total Time Total Time Spent Total Time Spent (In Minutes): 35 min Discharge Plan Discharge Items Patient Disposition: Transfer Inpatient Rehab Fac Reason For Visit: INTRABDOMINAL BLEED Discharge Diagnosis: Intra-abdominal and retroperitoneal hemorrhage, possible rectal perforation, acute blood loss anemia, urinary retention Condition on Discharge: Fair Activity: As commented below Lifting: Gradually increase as tolerated Bathing: No limitations Exercise/Sports: Gradually increase as tolerated Weightbearing: Full weightbearing Non-emergency contact: Primary Care Provider and Oncologist Call non-emergency contact if: you have any medication questions, your symptoms worsen, your pain is not controlled, your pain is worsening and you have a fever Follow-up/Referrals: Checo Rae V., [Physician] - (Follow up within 1-2 weeks.) Dionicio Rivas M.D. [Primary Care Provider] - Diet: Regular Addtl Attending Provider Instructions: You were admitted with internal bleeding as a complication of your bone marrow biopsy. You were given blood transfusions and had improvement in your blood c ounts. You also had some urinary retention requiring a Btehea catheter. This is now resolved and you are able to urinate on your own. Please continue taking tramadol and tylenol as needed for pain. Please check a CBC in 3 days. Please follow up with Dr. Rae of Hematology/Oncology within 1-2 weeks. Pending Studies at Discharge: No Stand-Alone Forms: [facility] Skilled Items Patient informed of condition?: Yes DNR: No Discharge Level of Care: Acute rehab Communicable Disease: No Discharge Prognosis: Improving Lines: None Urinary Catheter: No Medications and DC Order Prescriptions: New acetaminophen [Tylenol Extra Strength] 500 mg Tablet 1,000 mg PO Q8 PRN (Reason: pain) Qty: 30 RF: 0 tramadol 50 mg Tablet 75 mg PO Q4H PRN (Reason: pain) Qty: 14 RF: 0 famotidine 20 mg Tablet 20 mg PO BID Qty: 60 RF: 0 polyethylene glycol 3350 [Miralax] 17 gram Powder In Packet 17 g PO DAILY Qty: 30 RF: 0 Continued meclizine 12.5 mg Tablet 12.5 mg PO UD PRN (Reason: Dizziness) Qty: 0 RF: 0 calcium carbonate [Caltrate 600] 600 mg calcium (1,500 mg) Tablet 1,200 mg PO BID Qty: 0 RF: 0 buspirone 10 mg Tablet 10 mg PO TID Qty: 0 RF: 0 fluocinonide 0.05 % cream 1 applic TOPICAL BID PRN (Reason: Itching) RF: 0 metoprolol tartrate 25 mg tablet 12.5 mg PO DAILY RF: 0 Changed diazepam [Valium] 2 mg Tablet 2 mg PO DAILY PRN (Reason: Anxiety) Qty: 3 RF: 0 pravastatin 20 mg Tablet 20 mg PO HS Qty: 0 RF: 0 cyclobenzaprine 5 mg tablet 5 mg PO DAILY PRN (Reason: Muscle Spasm) Qty: 0 RF: 0 Discontinued hydroxyurea 500 mg Capsule 500 mg PO BID Qty: 0 RF: 0 cimetidine 400 mg Tablet 400 mg PO HS Qty: 0 RF: 0 aspirin [Aspirin Low-Strength] 81 mg Tablet,Delayed Release (Dr/Ec) 81 mg PO DAILY Qty: 0 RF: 0 polyethylene glycol 3350 [Miralax] 17 gram/dose Powder 17 g PO Q OTHER DAY Qty: 0 RF: 0 Discharge Orders: Discharge Order (Routine); Ordered 08/15/21 Ordered By: Christin Cagle Admission Data Admit Date/Time: 08/05/21 14:06 Attending Provider: Christin Cagle Admit Provider: Jesse Mcintyre Primary Care Provider: Dionicio Rivas Other Providers: Christiano Cabrera ; Checo Rae V. ; Jose E Johnson Other Interventions: Discharge Summary Assessment (RN) Last Done: 08/15/21 11:27 Coding Level of Care Code D/C DAY MANAGEMENT >30 MINS Diagnoses Hemoperitoneum K66.1 Urinary retention R33.9 Anemia D64.9 Bowel perforation K63.1 Thrombocythemia D75.839 Peripheral neuropathy G62.9 Multinodular goiter E04.2 Fibromyalgia M79.7 Hyperlipidemia E78.5 Depression with anxiety F41.8
[2021-08-15] MEDS: POLYETHYLENE (MIRALAX) 17 GM PACK PO SCH (13:40)
[2021-08-15] MEDS: guaiFENesin 600 MG TABCR PO SCH (13:40)
== END 2021-08-15 14:10 | DRG 919 ==
LOC: ED 09:36 → SUATTDRO 14:06 → 1E 14:06 → 2S 08-06 15:49 → 3N 08-08 14:11